=== PATIENT | male | born 1960 | race Caucasian/White ===

== ENCOUNTER 2023-08-19 14:28 | Inpatient (IN) | payer BC ==
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
[2023-08-19 16:40] LABS: Basophils % (A) 0 %; Eosinophils % (A) 0 %; HCT 38.5 % (39.0-53.0); HGB 13.5 gm/dL (13.0-17.5); Lymphocytes # (A) 0.8 k/uL (1.0-4.8); Lymphocytes % (A) 10 %; MCH 33.6 pg (25.0-35.0); Mean Platelet Volume 9.9; Monocytes # (A) 0.3 k/uL (0-1.0); Monocytes % (A) 3 %; Neutrophils # (A) 7.4 k/uL (1.3-7.7); Neutrophils % (A) 86 %; RBC 4.01 m/uL (4.30-5.90); RDW 14.5 % (11.5-15.5); WBC 8.5 k/uL (3.8-10.6)
[2023-08-19 16:42] LABS: ALT 43 U/L (4-49); AST 53 U/L (17-59); African American GFR (CKD) 62 (>60 ml/min/1.73 sqM); Albumin 3.4 g/dL (3.5-5.0); Alkaline Phosphatase 71 U/L (38-126); Anion Gap 7 mmol/L; Blood Urea Nitrogen 43 mg/dL (9-20); Calcium 9.1 mg/dL (8.4-10.2); Carbon Dioxide 22 mmol/L (22-30); Chloride 108 mmol/L (98-107); Glucose 195 mg/dL (74-99); Non-African American GFR(CKD) 54 (>60 ml/min/1.73 sqM); Potassium 4.4 mmol/L (3.5-5.1); Sodium 137 mmol/L (137-145); Total Bilirubin 1.1 mg/dL (0.2-1.3); Total Protein 6.8 g/dL (6.3-8.2)
[2023-08-19 16:46] LABS: INR 1.3 (<1.2); Partial Thromboplastin Time 25.5 sec (22.0-30.0); Prothrombin Time 13.5 sec (10.0-12.5)
[2023-08-19 17:04] LABS: Large Platelets Present
[2023-08-19 17:05] LABS: Platelet Count 83 k/uL (150-450); Polychromasia Present
[2023-08-19] MEDS ORDERED: NALOXONE 0.4 MG/ML 1 ML VIAL IV PRN (18:48)
[2023-08-19] MEDS ORDERED: ACETAMINOPHEN TAB 325 MG TAB PO PRN (18:48)
[2023-08-19] MEDS: DEXAMETHASONE SOD PHOSPHATE 4 MG/ML 1 ML VIAL IVP SCH (19:03)
[2023-08-19] MEDS: SODIUM CHLORIDE 0.9% 1,000 ML IV SCH (19:03)
[2023-08-19 21:40] LABS: Glucose,Whole Blood 200 mg/dL (70-110)
[2023-08-19] MEDS: hydrALAZINE HCL 50 MG TAB PO PRN (23:34)
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
[2023-08-20 08:55] LABS: Basophils # (A) 0.02 X 10*3/uL (0.00-0.10); Basophils % (A) 0.2 %; Eosinophils # (A) 0 X 10*3/uL (0.04-0.35); Eosinophils % (A) 0 %; HCT 36.8 % (39.6-50.0); HGB 12.3 g/dL (13.0-17.0); Immature Platelet Fraction 11.4 % (1.1-6.1); Lymphocytes # (A) 1.02 X 10*3/uL (0.90-5.00); Lymphocytes % (A) 11.9 %; MCH 31.9 pg (27.0-32.0); MCHC 33.4 g/dL (32.0-37.0); MCV 95.6 FL (80.0-97.0); Mean Platelet Volume 12.7 FL (9.5-12.2); Monocytes # (A) 0.35 X 10*3/uL (0.20-1.00); Monocytes % (A) 4.1 %; NRBC Per 100 WBC 0 X 10*3/uL (0.00-0.01); Neutrophils # (A) 7.08 X 10*3/uL (1.80-7.70); Platelet Count 67 X 10*3/uL (140-440); RBC 3.85 X 10*6/uL (4.40-5.60); RDW 14.5 % (11.5-14.5); WBC 8.54 X 10*3/uL (4.50-10.00)
[2023-08-20 09:06] LABS: ALT 37 U/L (10-49); AST 37 U/L (14-35); Albumin 3.3 g/dL (3.8-4.9); Albumin/Globulin Ratio 1.32 Ratio (1.60-3.17); Alkaline Phosphatase 62 U/L (41-126); BUN/Creat Ratio 28.33 Ratio (12.00-20.00); Blood Urea Nitrogen 42.5 mg/dL (9.0-27.0); Calcium 8.7 mg/dL (8.7-10.3); Chloride 107 mmol/L (96-109); Globulin 2.5 g/dL (1.6-3.3); Glucose 192 mg/dL (70-110); Potassium 4.2 mmol/L (3.5-5.5); Sodium 140 mmol/L (135-145); Total Bilirubin 0.7 mg/dL (0.3-1.2); Total Protein 5.8 g/dL (6.2-8.2)
[2023-08-20] MEDS: [UNRECOGNIZED DRUG - OTHER] SQ SCH (09:31)
[2023-08-20] MEDS: PANTOPRAZOLE 40 MG TABLET PO SCH (09:32)
[2023-08-20] MEDS: ENOXAPARIN 40 MG/0.4 ML SYRINGE SQ SCH (10:23)
[2023-08-20] MEDS: DAPAGLIFLOZIN PROPANEDIOL 5 MG TABLET PO SCH (10:27)
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
[2023-08-20 11:31] LABS: Glucose,Whole Blood 312 mg/dL (70-110)
[2023-08-20 13:32] LABS: Glucose,Whole Blood 355 mg/dL (70-110)
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
[2023-08-20 16:29] LABS: Glucose,Whole Blood 215 mg/dL (70-110)
[2023-08-20] MEDS: INSULIN ASPART (NovoLOG) 100 UNIT/ML VIAL SQ SCH (16:40)
[2023-08-20] MEDS: GABAPENTIN 300 MG CAP PO SCH (16:40)
[2023-08-20 21:09] LABS: Glucose,Whole Blood 331 mg/dL (70-110)
[2023-08-20] MEDS: lisinopriL 10 MG TAB PO SCH (21:15)
[2023-08-20] MEDS: hydroCHLOROthiazide 12.5 MG CAP PO SCH (21:15)
[2023-08-20] MEDS: INSULIN DETEMIR (LEVEMIR) 100 UNIT/ML SYR SQ SCH (21:15)
[2023-08-20] MEDS: ATORVASTATIN 40 MG TAB PO SCH (21:15)
[2023-08-21 06:25] LABS: Glucose,Whole Blood 197 mg/dL (70-110)
[2023-08-21 11:56] LABS: Glucose,Whole Blood 254 mg/dL (70-110)
[2023-08-21 16:19] LABS: Glucose,Whole Blood 261 mg/dL (70-110)
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
[2023-08-21 21:51] LABS: Glucose,Whole Blood 323 mg/dL (70-110)
[2023-08-22 06:36] LABS: Glucose,Whole Blood 178 mg/dL (70-110)
[2023-08-22 11:15] LABS: Glucose,Whole Blood 213 mg/dL (70-110)
[2023-08-22 11:25] LABS: BUN/Creat Ratio 30.07 Ratio (12.00-20.00); Blood Urea Nitrogen 45.1 mg/dL (9.0-27.0); Chloride 106 mmol/L (96-109); Glucose 202 mg/dL (70-110); Sodium 140 mmol/L (135-145)
[2023-08-22 11:26] LABS: Calcium 8.5 mg/dL (8.7-10.3)
--- NOTE | 2023-08-22 11:27 | P.PN ---
Subjective Progress Note Date: 08/22/23 Principal diagnosis: Recent fall Cervical pain Bilateral upper extremity radiculopathy Bilateral upper extremity weakness Patient seen and examined this morning. Upon entering room patient was ambulating throughout room. Patient states he is looking forward to surgical procedure scheduled for tomorrow 08/23/2023. Informed patient that he will be n.p.o. at midnight tonight. Patient verbalizes understanding. Patient denies any current questions regarding the procedure. He states that his symptoms are unchanged. No acute concerns at this time. Objective - Vital Signs Vital signs: Vital Signs Temp 97.8 F 08/22/23 02:00 Pulse 55 L 08/22/23 02:00 Resp 18 08/22/23 02:00 BP 136/63 08/22/23 02:00 Pulse Ox 98 08/22/23 02:00 FiO2 Intake & Output 08/21/23 08/22/23 08/22/23 18:59 06:59 18:59 Other: Voiding Method Toilet # Voids 1 3 # Bowel Movements 1 - Exam Physical Examination General: The patient is awake and alert, in no acute distress Skin: Skin is warm and dry with no obvious rashes or lesions. Eye: Pupils are equal, round and reactive to light, extra-ocular movements are intact; there is normal conjunctiva bilaterally. Neck: The neck is supple, there is no tenderness to palpation, range of motion is limited due to pain and stiffness. Cardiovascular: There is a regular rate and rhythm. No murmur, rub or gallop is appreciated. Respiratory: Respirations are non-labored, breath sounds are equal. Gastrointestinal: Soft, non-distended, non-tender abdomen. Back: There is no tenderness to palpation in the midline, paralumbar, parathoracic or buttocks region. There is no obvious deformity . Musculoskeletal: Muscle strength in all major muscle groups of bilateral upper extremities 4/5, bilateral lower extremities 5/5. Neurological: CN 2-12 intact. There are no obvious motor or sensory deficits. Movement and coordination equal and intact. Sensory exam to light touch intact C5-T1 and intact from L2-S1. Reflexes 2/4 in bilateral upper and lower extremities. Positive Bilateral Hoffmans, Negative babinski, and clonus signs. Psychiatric: Cooperative, appropriate mood & affect, normal judgment. - Labs CBC & Chem 7: 08/20/23 05:48 08/20/23 05:48 Labs: Abnormal Lab Results - Last 24 Hours (Table) 08/21/23 08/21/23 08/21/23 Range/Units 11:55 16:17 21:50 POC Glucose (mg/dL) 254 H 261 H 323 H (70-110) mg/dL 08/22/23 Range/Units 06:32 POC Glucose (mg/dL) 178 H (70-110) mg/dL Assessment and Plan Assessment: 1. C5-6 spondylosis with HNP and severe stenosis 2. C6-7 spondylosis with stenosis 3. Likely central cord syndrome from fall in [place], overall improvement, but limited. 4. Neck pain 5. L>R UE weakness Plan: Patient is scheduled for C5-C7 ACDF for 08/23/2023. Patient will be n.p.o. at midnight. 2. Appreciate medical management 3. Pain management -continue with oral and IV pain medications. 4. GI prophylaxis -senna 5. DVT prophylaxis -Mechanical 6. PT/OT - weightbearing as tolerated. 7. Appreciate consult
[2023-08-22 11:50] LABS: Basophils # (A) 0.03 X 10*3/uL (0.00-0.10); Basophils % (A) 0.3 %; Eosinophils # (A) 0 X 10*3/uL (0.04-0.35); Eosinophils % (A) 0 %; HCT 37.9 % (39.6-50.0); HGB 12.6 g/dL (13.0-17.0); Immature Platelet Fraction 11.4 % (1.1-6.1); Lymphocytes % (A) 7.6 %; MCH 31.7 pg (27.0-32.0); MCHC 33.2 g/dL (32.0-37.0); MCV 95.5 FL (80.0-97.0); Monocytes # (A) 0.92 X 10*3/uL (0.20-1.00); Monocytes % (A) 7.7 %; NRBC Per 100 WBC 0 X 10*3/uL (0.00-0.01); Neutrophils # (A) 9.82 X 10*3/uL (1.80-7.70); Neutrophils % (A) 82.5 %; Platelet Count 77 X 10*3/uL (140-440); RBC 3.97 X 10*6/uL (4.40-5.60); RDW 14.3 % (11.5-14.5)
[2023-08-22 16:17] LABS: Glucose,Whole Blood 252 mg/dL (70-110)
--- NOTE | 2023-08-22 19:34 | P.PN ---
Subjective Progress Note Date: 08/22/23 63-year-old male who presents emergency department complaining of neck pain. Patient was in [place] accident in [place] in mid July. He fell down some steps, and lost consciousness. Has been having neck pain since. Imaging done in early at that time unremarkable but was instructed to obtain an MRI when he returned to the [facility]. Injury occurred on July 30, 2023. MRI was completed earlier today and he was sent in by his PCP Dr. Fernandez for admission and evaluation by orthopedics. He continues to have similar to pain since the accident, which involves a shooting, burning numbness itchy sort of sensation that radiates from his neck down both arms to his second and third digits on both hands. Denies any weakness. Endorses mild neck discomfort but no significant pain. Denies any lower extremity weakness or sensory deficits. Has no other acute complaints at this time. Presents for further evaluation he has been on a Medrol Dosepak orally for the last few days. History of diabetes, hypertension, hyperlipidemia. MRI of the cervical spine taken on 08/19/2023 demonstrates a large broad-based central disc herniation C5-C6 that results in an anterior compression of the spinal cord and severe bilateral foraminal encroachment and canal stenosis. There is multilevel disc herniations or disc osteophyte complex resulting in multilevel significant foraminal encroachment. Patient has been evaluated by orthopedic surgery; recommend surgical intervention of C5-C6, C6-C7 anterior cervical decompression and fusion. -- Patient is agreeable to the plan with surgery for 08/23/2023; patient will be n.p.o. at midnight on 08/22/2023 08/22/2023 Patient is seen and evaluated sitting up in bedside chair; multiple family members at bedside; reports irritability and restlessness with steroids Vital signs are reviewed and remained stable Blood work reveals WBC of 11.9, hemoglobin of 12.6 and platelet count of 77, sodium 140, potassium 4.0, BUNs/creatinine of 45/1.5 blood glucose ranging between 178-213 Patient is scheduled for C5-C7 ACDF for 08/23/2023. Patient will be n.p.o. at midnight. Objective - Vital Signs Vital signs: Vital Signs Temp 97.8 F 08/22/23 07:59 Pulse 63 08/22/23 07:59 Resp 18 08/22/23 07:59 BP 165/95 08/22/23 07:59 Pulse Ox 97 08/22/23 07:59 FiO2 Intake & Output 08/21/23 08/22/23 08/22/23 18:59 06:59 18:59 Other: Voiding Method Toilet # Voids 1 3 # Bowel Movements 1 - Exam General: Appears in no acute distress. HEAD: Normal with no signs of head trauma. EYES: PERRLA, EOMI, conjunctiva normal, no discharge. ENT: Hearing grossly intact, normal oropharynx. RESPIRATORY: Clear breath sounds bilaterally. No wheezes, rales, or rhonchi. C/V: Regular rate and rhythm. S1 and S2 auscultated, no edema, peripheral pulses 2+ and intact throughout ABD: Abd is soft, nontender, nondistended EXT: Normal range of motion, no obvious deformity. No significant midline cervical, thoracic, lumbar spine tenderness to palpation. No step-offs or deformities appreciated. SKIN: No rashes or lesions observed on exposed skin. NEURO: Alert and oriented x 4. Paresthesias of the bilateral arms with radiation from the neck down both arms to the second and third digits of the hands. No other other focal deficits. - Labs CBC & Chem 7: 08/22/23 06:20 08/22/23 06:20 Labs: Abnormal Lab Results - Last 24 Hours (Table) 08/21/23 08/21/23 08/22/23 Range/Units 16:17 21:50 06:20 WBC 11.90 H (4.50-10.00) X 10*3/uL RBC 3.97 L (4.40-5.60) X 10*6/uL Hgb 12.6 L (13.0-17.0) g/dL Hct 37.9 L (39.6-50.0) % Plt Count 77 L (140-440) X 10*3/uL MPV 13.0 H (9.5-12.2) FL Immature Gran # 0.23 H (0.00-0.04) X 10*3/uL Neutrophils # 9.82 H (1.80-7.70) X 10*3/uL Eosinophils # 0 L (0.04-0.35) X 10*3/uL Immature Plt Fraction 11.4 H (1.1-6.1) % BUN (9.0-27.0) mg/dL Est GFR (CKD-EPI) (>=60) BUN/Creatinine Ratio (12.00-20.00) Ratio Glucose (70-110) mg/dL POC Glucose (mg/dL) 261 H 323 H (70-110) mg/dL Calcium (8.7-10.3) mg/dL 08/22/23 08/22/23 08/22/23 Range/Units 06:20 06:32 11:12 WBC (4.50-10.00) X 10*3/uL RBC (4.40-5.60) X 10*6/uL Hgb (13.0-17.0) g/dL Hct (39.6-50.0) % Plt Count (140-440) X 10*3/uL MPV (9.5-12.2) FL Immature Gran # (0.00-0.04) X 10*3/uL Neutrophils # (1.80-7.70) X 10*3/uL Eosinophils # (0.04-0.35) X 10*3/uL Immature Plt Fraction (1.1-6.1) % BUN 45.1 H (9.0-27.0) mg/dL Est GFR (CKD-EPI) 52 L (>=60) BUN/Creatinine Ratio 30.07 H (12.00-20.00) Ratio Glucose 202 H (70-110) mg/dL POC Glucose (mg/dL) 178 H 213 H (70-110) mg/dL Calcium 8.5 L (8.7-10.3) mg/dL Assessment and Plan Assessment: 1. Acute herniated and compression disc affecting the cervical spine 5/6 with anterior compression of the cord -- Patient has been evaluated by orthopedic surgery; recommend surgical intervention of C5-C6, C6-C7 anterior cervical decompression and fusion. Patient would like to proceed with surgical intervention. Patient has been scheduled for 08/23/23. Pateint will be NPO at [place] on 08/22/23. 2. Severe intractable cervical spine pain with radiculopathy secondary to acute compression and severe spinal stenosis: -- Patient reports adequate pain control with current regimen; will continue same 3. Type 2 diabetes: Currently on Farxiga and Levemir resume NovoLog with Accu- Chek sliding scales 4. Hypertension: Zestril 10 mg a day; hydralazine 25 to 50 mg every 6 hours for systolic blood pressure above 150. 5. Hyperlipidemia: Total 40 mg daily. 6. Acute kidney injury with chronic kidney disease stage II: Continue gentle hydration avoid any nephrotoxic agent watch symptoms carefully. -We will monitor strict AMANDA's, daily weights, renal function electrolytes DVT prophylaxis: Patient will be on Lovenox 40 mg subcutaneous daily. CODE STATUS: Full code.
[2023-08-22 21:54] LABS: Glucose,Whole Blood 172 mg/dL (70-110)
[2023-08-23 06:17] LABS: Glucose,Whole Blood 216 mg/dL (70-110)
[2023-08-23 09:13] LABS: BUN/Creat Ratio 27.67 Ratio (12.00-20.00); Blood Urea Nitrogen 41.5 mg/dL (9.0-27.0); Glucose 202 mg/dL (70-110)
[2023-08-23 09:14] LABS: Calcium 8.3 mg/dL (8.7-10.3); Carbon Dioxide 23.7 mmol/L (21.6-31.8); Chloride 106 mmol/L (96-109); Potassium 4.1 mmol/L (3.5-5.5); Sodium 139 mmol/L (135-145)
[2023-08-23 11:39] LABS: Glucose,Whole Blood 195 mg/dL (70-110)
[2023-08-23] MEDS: DEXTROSE 50% SYRINGE 50 ML IVP ONE (14:38)
[2023-08-23 15:12] LABS: Glucose,Whole Blood 129 mg/dL (70-110)
--- NOTE | 2023-08-23 16:03 | P.PN ---
Progress Note - Text Progress Note Date: 08/23/23 Spine Surgery Clinical and Risk Review MEGAN IVY is a 63 YO MALE presenting for evaluation of BUE PARESTHESIAS, WEAKNESS, DIFFICULTY WITH FINE MOTOR SKILLS, NECK PAIN. It was my pleasure to have seen and examined MEGAN IVY . In our visit today we have had a chance to go over subjective complaints, physical examination findings and treatments including the natural course history without intervention and various interventional options. The patients imaging demonstrates SEVERE STENOSIS WITH CORD COMPRESSION AND HNP AT C5-6 AND C6-7. NO FRACTURE. NO LESIONS. C0-1 AND C1-2 ARE STABLE. On physical exam, MEGAN IVY demonstrates BUE HYPERESTHESIA TO TOUCH, FINE MOTOR DISRUPTION, NECK PAIN, NUMBNESS IN C5-7 DISTRIBUTION B/L UE. I have explained to the patient that as their condition progresses it will cause further neurological deficits and eventual paralysis. Based on the patients imaging, physical exam, and the rapid progression and disabling nature of their symptoms, at this time I recommend surgery in the form or a: C5-7 ANTERIOR CERVICAL DISCECOMTY AND FUSION. I discussed the risk and benefits of this procedure at length with MEGAN IVY . The patient AND agreed to considered pursuing the procedure abovementioned. Prior to surgery, she should follow up with her PCP (Cardio, ID, IM etc) for clearance. Questions were invited and answered, and the patient wishes to proceed as outlined below. Currently, I am recommendin. C5-7 ANTERIOR CERVICAL DISCECOMTY AND FUSION 2. Follow up with PCP for surgical clearance 3. Review of surgical risks and benefits as well as an educational packet on the proposed surgical procedure. Risks: All surgical procedures come with inherent risks, including those related to positioning, anesthesia, intraoperative findings, and postoperative complications. It is important to understand that surgery does not come with any guarantee of a successful outcome as complications and adverse events are always possible. The patient was given a handout in office today discussing the surgical procedure and risks associated with the intervention, both of which were discussed with the patient. These risks include but are not limited to the following: * Experiencing same, different or even worse symptoms in back, neck, arms, or legs compared to before surgery. * Requiring further surgery or other forms of treatment presently or at some time in the future at same or other levels of the intended spine surgery. * On an extreme but fortunately relatively rare basis severe complication such as blindness, stroke, heart attack, temporary and/or permanent nerve injury, paralysis, coma, or may occur, sometimes without known explanation. * Surgical complications may include but are not limited to risk of infecti on, fluid accumulation in the surgical dissection site, including a seroma or hematoma, that requires additional surgery, wound drainage, bleeding, new numbness or weakness, vision changes/loss, spinal fluid leakage, non-healing and/or infected incision, headaches, difficulty or inability to swallow, hoarseness, hemopneumothorax, pneumothorax, impotence, retrograde ejaculation, vaginal dryness; injury to nerves, spinal cord, blood vessels, lymphatics or other vital organs (i.e., bowel injury, injury to the great vessels); heterotopic bone formation; complications related to the hardware such as screws, rods, cages including misplaced hardware, device failure, instrumentation at the wrong spine level, hardware fracture/breakage, or hardware loosening; vertebral failure of the spinal column above or below the newly placed hardware; retained surgical instrumentations or devices and the need for further surgery. * Medical risks of the planned spine surgery include but are not limited to generalized Infections to the whole body or local areas outside of the surgical site (sepsis), heart attack, bleeding, anaphylaxis, meningitis, seizure, epilepsy, hearing loss, burn perera, laceration of the head or other areas of the body, bruising, hypersensitivity of the skin, bladder over distension; allergic reaction; shoulder injury related to positioning; fat, blood and air clots to other areas of the body like heart, lungs, brain; failure of internal organs such as lungs, kidneys, liver and excessive bleeding. If blood transfusions are necessary, note that transfusions may cause intolerance reactions such as anaphylaxis or other complex reactions. * Despite best efforts, the results of spine surgery might not heal in terms of bone, soft tissues such as skin, fascia, ligaments, and joints. Additionally, in order to achieve best possible results, spine surgery may be carried out beyond the initially planned levels and involve decompression, fusion including insertion of hardware at levels other than the original intended area of surgical interest change some portions of the procedure in order to ensure the best possible outcomes. * With spine surgery and spinal fusion, there are different off label uses of instrumentation (devices, implants and hardware) as well as biological substances (bone morphogenic proteins, demineralized bone matrix) as well as using extra bone from allograft sources (i.e. cadaver bone) or autograft (iliac crest bone, ribs, or the spine itself). The patient has been given information about these practices and their inherent risks and benefits. The patient has had a chance to review all the listed information, has been given print outs detailing this information, and has had all his/her questions answered to their satisfaction. It was my pleasure to have seen and examined MEGAN IVY . In our visit today we have had a chance to go over my understanding of our patient's current condition, the natural course history without intervention and various interventional options. Questions were invited and answered, and the patient wishes to proceed as outlined above. I have seen and examined the patient for 25 minutes and we have spent more than 50% of the time in repeat and detailed counseling about the patient's condition, its natural course history with out and as much as can be predicted with surgery and re-review of various surgical treatment options. In conclusion, MEGAN IVY and AT BEDSIDE requested we proceed with the above suggested surgery and are willing to accept risks and limitations of the suggested surgery as nature of the disease process and our best attempts at treatment for the condition. Thank you again for allowing us to be part of your patient's care. Please don't hesitate to contact me if you have any further questions. Signed and authenticated by: Vipul Hnening [facility] [address] [place] [address], [address] [id number]
[2023-08-23 16:19] LABS: Glucose,Whole Blood 108 mg/dL (70-110)
[2023-08-23 16:34] LABS: Glucose,Whole Blood 109 mg/dL (70-110)
[2023-08-23] MEDS: LACTATED RINGERS 1,000 ML IV ONE ×4 (16:45→17:50)
[2023-08-23] MEDS ORDERED: HYDROmorphone (PF) 1 MG/ML ONE (16:55)
[2023-08-23] MEDS ORDERED: ePHEDrine 50 MG/ML 1 ML VIAL ONE (16:55)
[2023-08-23] MEDS ORDERED: LIDOCAINE 1% INJ 10MG/ML (20 ML MDV) ONE (16:55)
[2023-08-23] MEDS ORDERED: fentaNYL (PF) 50 MCG/ML 2 ML AMP ONE (16:55)
[2023-08-23] MEDS ORDERED: ROCURONIUM 10 MG/ML (5 ML VIAL) IV ONE (16:55)
[2023-08-23] MEDS ORDERED: TRANEXAMIC 1,000 MG/100ML-NACL PREMIX BAG ONE (16:55)
[2023-08-23] MEDS ORDERED: SUCCINYLCHOLINE CHLORIDE 200 MG/10 ML VIAL IV ONE (16:55)
[2023-08-23] MEDS ORDERED: MIDAZOLAM 2 MG/2 ML VIAL ONE (16:55)
[2023-08-23] MEDS ORDERED: PROPOFOL 10 MG/ML 20 ML VIAL IV ONE (16:55)
[2023-08-23] MEDS ORDERED: SUGAMMADEX SODIUM 200 MG/2 ML SDV IV ONE (16:55)
[2023-08-23] MEDS: THROMBIN (BOVINE) 5,000 UNIT VIAL TOPICAL ONE (16:59)
[2023-08-23] MEDS: ceFAZolin 1,000 MG VIAL IVPB ONE (17:20)
--- NOTE | 2023-08-23 19:07 | P.OP ---
Date of Procedure: 08/23/23 Preoperative Diagnosis: 1. C5-7 HNP WITH STENOSIS, SEVERE 2. CENTRAL CORD SYNDROME 3. BUE PARESTHESIAS 4. BUE WEAKNESS 5. NECK PAIN Postoperative Diagnosis: 1. C5-7 HNP WITH STENOSIS, SEVERE 2. CENTRAL CORD SYNDROME 3. BUE PARESTHESIAS 4. BUE WEAKNESS 5. NECK PAIN Procedure(s) Performed: 1. C5-6 ANTERIOR CERVICAL ARTHRODESIS 2. C6-7 ANTERIOR CERVICAL ARTHRODESIS 3. ANTERIOR INSTRUMENTATION C5-7 4. C5-6 AND C6-7 INSERTION OF BIOMECHANICAL DEVICE X2 CAGES USE OF IONM USE OF IO MICROSCOPE Implants: -TRACY CASCADIA INTERBODY 9MM INTERBODY X2 7 DEG -TRACY OZARK ANTERIOR PLATE 46 MM -16MM SCREWS -MAGNATOS -AUTOGRAFT Anesthesia: GETA Surgeon: Vipul Rosario Rehabilitation Program Coordinator #1: Isak Elmore (WAS PRESENT AND ASSISTED WITH ALL ASPECTS OF THE CASE FROM POSITION TO CLOUSRE) Estimated Blood Loss (ml): 50 IV fluids (ml): 1,400 Urine output (ml): 0 Pathology: none sent Condition: stable Disposition: PACU Indications for Procedure: MEGAN IVY is a 63 YO MALE presenting for evaluation of BUE PARESTHESIAS, WEAKNESS, DIFFICULTY WITH FINE MOTOR SKILLS, NECK PAIN. It was my pleasure to have seen and examined MEGAN IVY . In our visit today we have had a chance to go over subjective complaints, physical examination findings and treatments including the natural course history without intervention and various interventional options. The patients imaging demonstrates SEVERE STENOSIS WITH CORD COMPRESSION AND HNP AT C5-6 AND C6-7. NO FRACTURE. NO LESIONS. C0-1 AND C1-2 ARE STABLE. On physical exam, MEGAN IVY demonstrates BUE HYPERESTHESIA TO TOUCH, FINE MOTOR DISRUPTION, NECK PAIN, NUMBNESS IN C5-7 DISTRIBUTION B/L UE. I have explained to the patient that as their condition progresses it will cause further neurological deficits and eventual paralysis. Based on the patients imaging, physical exam, and the rapid progression and disabling nature of their symptoms, at this time I recommend surgery in the form or a: C5-7 ANTERIOR CERVICAL DISCECOMTY AND FUSION. I discussed the risk and benefits of this procedure at length with MEGAN IVY . The patient AND agreed to considered pursuing the procedure abovementioned. Prior to surgery, she should follow up with her PCP (Cardio, ID, IM etc) for clearance. Questions were invited and answered, and the patient wishes to proceed as outlined below. Currently, I am recommendin. C5-7 ANTERIOR CERVICAL DISCECOMTY AND FUSION Description of Procedure: C5-7 ACDF The patient was seen and examined in the preoperative area. All preoperative protocols were followed. Informed consent was obtained, risks and benefits of the procedure were discussed at length. Risks including bleeding infection damage to the surrounding tissue and risk of reoperation were discussed with the patient. Risk of anesthesia up to and including was discussed with the patient. These are outlined in the risk review. They were willing to accept these risks and all the risks of surgery. The patient was given a weight-based dose of antibiotics in the form of 2 g Ancef. The patient was seen and evaluated by the anesthesia team who deemed them fit for surgery. The site was marked, the patient was willing to proceed with the procedure. The patient was transferred to the operative suite by the Department of anesthesia. They were then drifted off to sleep by the department anesthesia and GETA was performed. The patient tolerated this well. Weinberg catheter was placed by nursing staff, a-traumatically. Once confirmation of lines and ventilation the patient was transferred to a Supine Aldo table very carefully. All bony prominences including wrists, elbows, axilla, chest, hips, and thighs, and feet were padded very well. Special attention was paid to the genitalia, and these were padded accordingly. SCDs were placed on bilateral lower extremities and were connected. Arms were well padded and placed at their side thumbs up. Once in position, again we confirmed good ventilation capabilities and that lines were running appropriately. The patients Cervical spine was then exposed. 1010s were placed outlining the incision site. Standard alcohol was used to clean the incision site and allowed to dry. C-arm was used to bio-neftali the patient and confirm level for incision which was marked with a skin marker. Operative briefing was performed with all teams and everyone in agreement to proceed. The patient was then prepped and draped in a normal sterile fashion. Timeout was then performed, and all parties agreed with the procedure to be performed. Transverse skin incision was then made on the right side of the patient's neck 3 cm and dissection taken down to the platysma which was split transversely. Sub platysma flap was made, and interval identified between SCM and medial structures. Omohyoid was visualized and protected. Blunt dissection taken down to the anterior cervical fascia which was identified. Blunt probe was then placed and lateral image taken which confirmed levels for operation. These levels were then marked with a bovi. Subperiosteal dissection of the longissimus muscles were then done over these levels identifying uncovertebral joints bilaterally. Retractor was then placed deep to these muscles and held in place with a bed arm. Starting at C6-7, Wenonah pins were placed into C6 and C7 and gentle distraction taken out over the levels. Pedro rongeur used to remove disc material. Operating microscope brought in for visualization. Complete discectomy performed at this level with curette, rongure and pituitary. High speed judah used to remove osteophytes anteriorly and posteriorly until PLL was identified. 6-0 up curette then used to identify the canal and resect the PLL. 2-0 and 3-0 Kerrison used then to remove PLL and disc herniation and performed b/l foraminotomies. Once good decompression was accomplished, meticulous hemostasis was performed. Sizers were then placed under lateral fluoroscopy until the desired height and lordosis. Cage was then selected, packed with autograft and allograft and placed under lateral imaging. Once in good position it was tested and stable. Motors run before and after cage placement were stable. The wound was irrigated, and autograft placed lateral to the cage anteriorly for fusion. Wenonah pin was then removed from C7 and placed into C5. Gentle distraction taken out over C5-6 now. Complete discectomy done at C5-6 as described including decompression, b/l foraminotomies and PLL resection. Burring of endplates was minimal, osteophytes removed as described. Spacers were then sized and placed under lateral imaging. Cage selected, packed with graft and placed under lateral images. Once in position, meticulous hemostasis performed, and motors remained stable before and after cage placement. AP image confirmed good placement of cages. Wound was irrigated. A separate, non-integrated plate was then selected and sized under lateral image. The plate was then placed with screws. Fixed screws drilled into C7 b/l and screws placed. Then into C6 and finally C5 with variable screws. All locking mechanisms were set, and all screws had good purchase. Final AP and lateral images taken confirmed good placement of hardware and good reduction and samaritan of height. The wound was then irrigated copiously with NSS. Surgicel placed deep in the wound. A deep drain placed out a separate incision and sewed into place. Layered closure then performed with 3-0 Vicryl in the platysma and subQ tissue. 4-0 Strata fix in the subcuticular tissue. The wound was then cleaned, and dried and skin glue placed. Once glue dried on Opifoam was placed. The patient was then transferred back to their hospital bed a-traumatically. The drain continued to hold suction. They were placed in a soft collar. They were then awakened by the department of anesthesia having tolerated the procedure well without complications.
--- NOTE | 2023-08-23 19:17 | XR ---
EXAMINATION TYPE: XR cervical spine limited, FL guidance operating room Intraoperative/procedural flu oroscopic services were provided. Total fluoroscopy time is 32.5 seconds with a total of 4 submitted images to PACS. Please see the operative/procedural note for further details. DAP: 1.6196 Gycm2
[2023-08-23] MEDS ORDERED: MAGNESIUM HYDROXIDE 2,400 MG/30 ML CUP PO PRN (19:18)
[2023-08-23] MEDS ORDERED: HYDROcodone/APAP 5-325MG 1 EACH TAB PO PRN (19:18)
[2023-08-23] MEDS ORDERED: HYDROmorphone 1 MG/ML 1 ML SYRINGE IVP PRN (19:18)
[2023-08-23] MEDS ORDERED: HYDROmorphone 0.5 MG/0.5 ML SYRINGE IVP PRN (19:18)
[2023-08-23] MEDS ORDERED: CYCLOBENZAPRINE 5 MG TAB PO PRN (19:18)
[2023-08-23 19:27] LABS: Glucose,Whole Blood 129 mg/dL (70-110)
[2023-08-23] MEDS: LABETALOL 5 MG/ML VIAL MDV IVP ONE (19:53)
[2023-08-23] MEDS: HYDROmorphone 0.5 MG/0.5 ML SYRINGE IVP ONE (19:55)
[2023-08-23] MEDS: hydrALAZINE HCL 20 MG/ML 1 ML VIAL IVP ONE (20:26)
[2023-08-23 21:44] LABS: Glucose,Whole Blood 160 mg/dL (70-110)
--- NOTE | 2023-08-23 22:38 | P.PN ---
Subjective Progress Note Date: 08/23/23 HISTORY OF PRESENT ILLNESS: 63-year-old obese one of my office patient well-known for the last 2 years with active medical history of type 2 diabetes, hypertension, hyperlipidemia, chronic lower back pain, chronic neuropathy, BPH with no obstruction, obstructive sleep apnea, chronic edema, chronic kidney disease who was in vacation in [place] last week when [place] when they were [place] he fell and people tripped on him and stampede him I declined more than 3 times he developed to have head and neck injury mated to the emergency department where we will scan his head at the time and did some upper extremity extremity became to the conclusion that he had no bleed or neuro injury and was told if you keep having symptoms when he comes home for an MRI. Patient was seen in our office continue to complain of severe cervical spine pain and discomfort with worsening numbness going all the way down to both upper extremity affecting the outer part of his thumb and second finger making both upper extremity weak. Patient was diagnosed with possible acute compression started on steroid with dexamethasone and MRI of the cervical spine was urgently ordered and done today came back with finding consistent with large broad-based central disc herniation of the C5-C6 results and anterior compression of the spinal cord and severe bilateral foraminal encroachment and canal stenosis. Also had multilevel of disc herniation or disc osteophyte complex resulting in multi level significant foraminal encroachment and multilevel canal stenosis. Also had sagittal disc bulging however protrusion in the upper thoracic spine incidentally noted. Patient was called with the result and instructed to come to the emergency department to be admitted he need to be started on steroid IV and to see orthopedic/neurosurgeon. Patient was seen and evaluated in the emergency department Sherry continue to have intractable pain and discomfort in his neck not been able to lay down flat with the current symptom was instructed to initiate cervical spine: Start steroid and pain management consult orthopedic programming specialist. August 20, 2023: Patient was kept in the hospital overnight continue steroid IV, waiting to see orthopedic service today to decide on further management specially with the current finding of his MRI with acute compression which most likely patient will require intervention. Patient is not able to lay down flat and almost all night up. Continue to watch patient's symptoms carefully still waiting for Ortho service. August 23, 2023: Patient scheduled for surgery today for central cord syndrome from a fall in [place] require C5-C7 ACDF, he was kept comfortable on the weekend and pain management along with steroid still have slight weakness in the left more than the right upper extremity and looking forward to his surgery. Has been n.p.o. after midnight. Reviewed his lab from earlier the only thing slightly with abnormal still on his blood sugar which been controlled also he has mild thrombocytopenia platelet count still at 77,000 should not have any contraindication for surgery with my consult hematology. REVIEW OF SYSTEMS: CONSTITUTIONAL: Obese no acute respiratory distress. Still having severe pain and discomfort in the neck area. Neck: Significant pain discomfort and tenderness and limitation when attempting to turn his neck from 1 side to another. EYES: No icterus sclerae, no conjunctivitis. EARS, NOSE, MOUTH, THROAT, and FACE: No sore throat, lymphadenopathy, carotid bruits or deformity. RESPIRATORY: No SOB cough or wheezes. CARDIOVASCULAR: No CP, Palpitation, PND, Orthopnea, or angina. GASTROINTESTINAL: No Abd pain, Nausea or vomiting, no Diarrhea or constipation, No GI Bleed, no distention or masses. GENITOURINARY: Negative for Hematuria or UTI, no kidney stones. INTEGUMENT/BREAST: Generalized arthralgia and myalgia. HEMATOLOGIC/LYMPHATIC: Negative for bleed or purpura. MUSCULOSKELTAL: Generalized muscle and joint pain. NEURLOGICAL: Positive for numbness and weakness of the upper extremity mostly in the right and left side. BEHAVIORAL/PSYCH: Negative. ENDOCRINE: Negative. PHYSICAL EXAMINATION: General Appearance: Alert, cooperative, no distress, severe pain and discomfort in neck and upper extremity. Neck HEENT: Cervical spine is very tender with no lymph node enlargement or thyroid enlargement and significant decrease motion specially turning 1 side to another with tenderness in the frontal on the back of the cervical spine. Lungs: Clear to auscultation without crackles or wheezes no rhonchi, no deformit y. Chest Wall: Chest wall normal expansion with deep inspiration no tenderness and no deformity was found on exam, no costochondral pain or discomfort. Heart: Regular rate and rhythm, S1, S2 normal, no murmur, rub or gallop. Back: Symmetric, no curvature, ROM normal, no CVA tenderness. Abdomen: Soft, non-tender, bowel sounds active all four quadrants, no masses, no organomegaly. Extremities: Extremities normal, atraumatic, no cyanosis or edema. Pulses: 2+ and symmetric. Skin: Skin color, texture, tugor normal, no rashes or lesions. Neurologic: Alert oriented x3 cranial nerves II through XII intact, positive weakness in the upper extremity bilaterally with significant numbness specially on the lateral aspect of both upper extremity worse on the right side than left side. ASSESSMENT AND PLAN: _Acute herniated and compression disc affecting the cervical spine 5/6 with anterior compression of the cord, Patient be admitted to the hospital start dexamethasone along with pain management, Dr. Rosario was consulted and will probably require urgent surgical intervention. Waiting for this decision today but will continue steroid and pain management. _Severe intractable cervical spine pain with radiculopathy from acute compression and severe spinal stenosis: Will keep patient on smaller dose of Dilaudid along with muscle relaxer. _Type 2 diabetes: Has been on Farxiga and Levemir resume NovoLog with Accu-Chek sliding scales coverage his blood sugar will be affected with the steroid at this point. Blood sugars quite bit high at this point specially with the steroid we might short acting insulin 5 units base plus sliding scales coverage. _Thrombocytopenia: With platelet count ranging around 77,000 with no sign of bleed, patient is scheduled for surgeryCBC will be done tomorrow morning. _Hypertension: Has been on Zestril 10 mg a day with a blood pressure being high and will initiate hydralazine 25 to 50 mg every 6 hours for systolic blood pressure above 150. _Hyperlipidemia: Has been on atorvastatin 40 mg daily. _Acute kidney injury with chronic kidney disease stage II: Creatinine remained at 1.5 EGFR 62, continue hydration watch symptoms carefully. _BPH with no sign of obstruction: Watch urine output carefully. _Chronic edema: Has been on HydroDIURIL in the past. _GI prophylaxis: Start patient on pantoprazole 40 mg daily. Prognosis: Fair. Discussion patient is going for surgery today hopefully will feel much better afterward. Objective - Vital Signs Vital signs: Vital Signs Temp 97.5 F L 08/23/23 02:00 Pulse 52 L 08/23/23 02:00 Resp 18 08/22/23 14:00 BP 134/70 08/23/23 02:00 Pulse Ox 98 08/23/23 02:00 FiO2 Intake & Output 08/22/23 08/22/23 08/23/23 06:59 18:59 06:59 Other: Voiding Method Toilet Toilet # Voids 3 2 1 # Bowel Movements 1 - Labs CBC & Chem 7: 08/22/23 06:20 08/23/23 04:30 Labs: Abnormal Lab Results - Last 24 Hours (Table) 08/22/23 08/22/23 08/22/23 Range/Units 06:20 06:20 06:32 WBC 11.90 H (4.50-10.00) X 10*3/uL RBC 3.97 L (4.40-5.60) X 10*6/uL Hgb 12.6 L (13.0-17.0) g/dL Hct 37.9 L (39.6-50.0) % Plt Count 77 L (140-440) X 10*3/uL MPV 13.0 H (9.5-12.2) FL Immature Gran # 0.23 H (0.00-0.04) X 10*3/uL Neutrophils # 9.82 H (1.80-7.70) X 10*3/uL Eosinophils # 0 L (0.04-0.35) X 10*3/uL Immature Plt Fraction 11.4 H (1.1-6.1) % BUN 45.1 H (9.0-27.0) mg/dL Est GFR (CKD-EPI) 52 L (>=60) BUN/Creatinine Ratio 30.07 H (12.00-20.00) Ratio Glucose 202 H (70-110) mg/dL POC Glucose (mg/dL) 178 H (70-110) mg/dL Calcium 8.5 L (8.7-10.3) mg/dL 08/22/23 08/22/23 08/22/23 Range/Units 11:12 16:15 21:52 WBC (4.50-10.00) X 10*3/uL RBC (4.40-5.60) X 10*6/uL Hgb (13.0-17.0) g/dL Hct (39.6-50.0) % Plt Count (140-440) X 10*3/uL MPV (9.5-12.2) FL Immature Gran # (0.00-0.04) X 10*3/uL Neutrophils # (1.80-7.70) X 10*3/uL Eosinophils # (0.04-0.35) X 10*3/uL Immature Plt Fraction (1.1-6.1) % BUN (9.0-27.0) mg/dL Est GFR (CKD-EPI) (>=60) BUN/Creatinine Ratio (12.00-20.00) Ratio Glucose (70-110) mg/dL POC Glucose (mg/dL) 213 H 252 H 172 H (70-110) mg/dL Calcium (8.7-10.3) mg/dL 08/23/23 Range/Units 06:00 WBC (4.50-10.00) X 10*3/uL RBC (4.40-5.60) X 10*6/uL Hgb (13.0-17.0) g/dL Hct (39.6-50.0) % Plt Count (140-440) X 10*3/uL MPV (9.5-12.2) FL Immature Gran # (0.00-0.04) X 10*3/uL Neutrophils # (1.80-7.70) X 10*3/uL Eosinophils # (0.04-0.35) X 10*3/uL Immature Plt Fraction (1.1-6.1) % BUN (9.0-27.0) mg/dL Est GFR (CKD-EPI) (>=60) BUN/Creatinine Ratio (12.00-20.00) Ratio Glucose (70-110) mg/dL POC Glucose (mg/dL) 216 H (70-110) mg/dL Calcium (8.7-10.3) mg/dL
[2023-08-24] MEDS: HYDROcodone/APAP 10-325MG 1 EACH TAB PO PRN (02:59)
[2023-08-24 06:41] LABS: Glucose,Whole Blood 198 mg/dL (70-110)
--- NOTE | 2023-08-24 08:18 | CT ---
EXAMINATION TYPE: CT cervical spine wo con CT DLP: 795.4 mGycm, Automated exposure control for dose reduction was used. DATE OF EXAM: 08/24/2023 7:36 AM COMPARISON: 08/23/2023. CLINICAL INDICATION:Male, 63 years old with history of s/p C5-C7 ACDF; PHH, s/p C5-C7 ACDF TECHNIQUE: Axial CT images from the skull base to the inferior aspect of T2 we obtained without intra venous contrast. Coronal and sagittal reformatted images were also reviewed. Contrast used: mL of , (if blank None) Oral contrast used: (if blank None) FINDINGS: Postsurgical changes with fixation hardware at C5-C6 and C7. Hardware appears intact. Discectomy at C 5-C6 and C6-C7. No evidence of acute fracture. There is multilevel degeneration changes with osteophy te formation, disc space narrowing, osteophyte formation, facet and uncovertebral joint arthropathy. Satisfactory alignment of the spinal canal. There is multilevel neural foraminal stenosis bilaterally at least moderate at multiple levels. IMPRESSION: Post surgical changes without evidence of immediate post surgical complication.
[2023-08-24 08:54] LABS: BUN/Creat Ratio 31.86 Ratio (12.00-20.00); Blood Urea Nitrogen 44.6 mg/dL (9.0-27.0); Calcium 8.4 mg/dL (8.7-10.3); Carbon Dioxide 19.7 mmol/L (21.6-31.8); Chloride 102 mmol/L (96-109); Glucose 227 mg/dL (70-110); Potassium 4.3 mmol/L (3.5-5.5); Sodium 138 mmol/L (135-145)
[2023-08-24] MEDS: SENNOSIDES-DOCUSATE SODIUM 1 EACH TAB PO SCH (09:02)
--- NOTE | 2023-08-24 09:19 | P.PN ---
Subjective Progress Note Date: 08/24/23 Principal diagnosis: 1. C5-6 spondylosis with HNP and severe stenosis 2. C6-7 spondylosis with stenosis 3. Likely central cord syndrome from fall in [place], overall improvement, but limited. 4. Neck pain 5. L>R UE weakness Patient seen and examined this morning. Patient is sitting up in chair at bedside. He reports that his pain was not managed throughout the night. Discussion of pain management was discussed with Day shift RN and rn intensive care unit. Encourage patient to utilize ice packs on bilateral shoulders to assist with pain management. Patient states that he has had improvement of his left upper extremity numbness since the procedure. Overall patient is very happy with his results. Surgical incision to the anterior cervical spine, dressing is clean dry and intact with soft cervical collar in place. Continue to encourage patient to be up in chair for all meals. Restrictions have been reiterated due to patient being eager to progress with his recovery. Objective - Vital Signs Vital signs: Vital Signs Temp 97.9 F 08/24/23 06:58 Pulse 68 08/24/23 06:58 Resp 17 08/24/23 06:58 BP 167/84 08/24/23 06:58 Pulse Ox 98 08/24/23 06:58 FiO2 Intake & Output 08/23/23 08/24/23 08/24/23 18:59 06:59 18:59 Intake Total 1500 400 Output Total 50 Balance 1500 350 Intake: IV 1500 400 Output: Estimated Blood Loss 50 Other: # Voids 1 - Exam Physical Examination General: The patient is awake and alert, in no acute distress Skin: Skin is warm and dry with no obvious rashes or lesions. Surgical incision to the anterior cervical spine, dressing is clean dry and intact. Eye: Pupils are equal, round and reactive to light, extra-ocular movements are intact; there is normal conjunctiva bilaterally. Neck: The neck is supple, there is mild tenderness around incision site. Limited range of motion due to surgical procedure and soft cervical collar intact. Cardiovascular: There is a regular rate and rhythm. No murmur, rub or gallop is appreciated. Respiratory: Respirations are non-labored, breath sounds are equal. Gastrointestinal: Soft, non-distended, non-tender abdomen. Back: There is no tenderness to palpation in the midline, paralumbar, parathoracic or buttocks region. There is no obvious deformity . Musculoskeletal: Muscle strength in all major muscle groups of right upper extremity 5/5, left upper extremity 4/5, bilateral lower extremities 5/5. Neurological: CN 2-12 intact. There are no obvious motor or sensory deficits. Movement and coordination equal and intact. Sensory exam to light touch intact C5-T1 and intact from L2-S1. Reflexes 2/4 in bilateral upper and lower extremities. Positive Bilateral Hoffmans, Negative babinski, and clonus signs. Psychiatric: Cooperative, appropriate mood & affect, normal judgment. - Labs CBC & Chem 7: 08/22/23 06:20 08/24/23 04:03 Labs: Abnormal Lab Results - Last 24 Hours (Table) 08/23/23 08/23/23 08/23/23 Range/Units 04:30 11:37 15:10 BUN 41.5 H (9.0-27.0) mg/dL Est GFR (CKD-EPI) 52 L (>=60) BUN/Creatinine Ratio 27.67 H (12.00-20.00) Ratio Glucose 202 H (70-110) mg/dL POC Glucose (mg/dL) 195 H 129 H (70-110) mg/dL Calcium 8.3 L (8.7-10.3) mg/dL 08/23/23 08/23/23 08/24/23 Range/Units 19:25 21:43 06:40 BUN (9.0-27.0) mg/dL Est GFR (CKD-EPI) (>=60) BUN/Creatinine Ratio (12.00-20.00) Ratio Glucose (70-110) mg/dL POC Glucose (mg/dL) 129 H 160 H 198 H (70-110) mg/dL Calcium (8.7-10.3) mg/dL Assessment and Plan Assessment: Postop day 1: C5-C7 ACDF 1. C5-6 spondylosis with HNP and severe stenosis 2. C6-7 spondylosis with stenosis 3. Likely central cord syndrome from fall in [place], overall improvement, but limited. 4. Neck pain 5. L>R UE weakness Plan: -Appreciate python consultant and team management. -Activity: Ambulate QID, OOB all meals, up and about, limit lifting bending twisting to less than 5 lbs. Use walker or cane if needed for stability. -Daily PT/OT, increase ambulation strength and balance. -Soft cervical collar at all times, may remove for showers -Pain control: Adequate at this time -Meds: reviewed -GI ppx: senna, Miralax -DVT PPX: OK to restart Heparin tonight -Hygiene: Shower today. Maintain dressing clean and dry. -Encourage IS 10x/hr -Dispo: Anticipate discharge home tomorrow with homecare *I reviewed and discussed this case with my attending Dr. Rosario, whom has reviewed this chart and films and is in agreement with assessment and plan of care as outlined above. I have personally seen and examined the patient, performed the documentation and the assessment and plan as written. Number of minutes spent on the visit: 20m.
[2023-08-24 09:38] LABS: Glucose,Whole Blood 213 mg/dL (70-110)
[2023-08-24 10:08] LABS: Basophils # (A) 0.05 X 10*3/uL (0.00-0.10); Basophils % (A) 0.4 %; Eosinophils # (A) 0 X 10*3/uL (0.04-0.35); Eosinophils % (A) 0 %; HCT 40.7 % (39.6-50.0); HGB 13.5 g/dL (13.0-17.0); Immature Platelet Fraction 11.8 % (1.1-6.1); Lymphocytes # (A) 0.71 X 10*3/uL (0.90-5.00); MCH 31.8 pg (27.0-32.0); MCHC 33.2 g/dL (32.0-37.0); Monocytes % (A) 10.2 %; NRBC Per 100 WBC 0 X 10*3/uL (0.00-0.01); Neutrophils # (A) 9.52 X 10*3/uL (1.80-7.70); Neutrophils % (A) 80.7 %; Platelet Count 61 X 10*3/uL (140-440); RBC 4.24 X 10*6/uL (4.40-5.60); RDW 14.6 % (11.5-14.5)
[2023-08-24 10:09] LABS: RBC Morphology Normal (Normal)
[2023-08-24 11:34] LABS: Glucose,Whole Blood 232 mg/dL (70-110)
[2023-08-24] MEDS: ONDANSETRON 4 MG/2 ML VIAL IVP PRN (12:06)
[2023-08-24 16:49] LABS: Glucose,Whole Blood 286 mg/dL (70-110)
[2023-08-24 20:36] LABS: Glucose,Whole Blood 140 mg/dL (70-110)
[2023-08-25 06:20] LABS: Glucose,Whole Blood 161 mg/dL (70-110)
--- NOTE | 2023-08-25 06:51 | P.PN ---
Subjective Progress Note Date: 08/24/23 HISTORY OF PRESENT ILLNESS: 63-year-old obese one of my office patient well-known for the last 2 years with active medical history of type 2 diabetes, hypertension, hyperlipidemia, chronic lower back pain, chronic neuropathy, BPH with no obstruction, obstructive sleep apnea, chronic edema, chronic kidney disease who was in vacation in [place] last week when he [place] when they were [place] he fell and people tripped on him and stampede him I declined more than 3 times he developed to have head and neck injury mated to the emergency department where we will scan his head at the time and did some upper extremity extremity became to the conclusion that he had no bleed or neuro injury and was told if you keep having symptoms when he comes home for an MRI. Patient was seen in our office continue to complain of severe cervical spine pain and discomfort with worsening numbness going all the way down to both upper extremity affecting the outer part of his thumb and second finger making both upper extremity weak. Patient was diagnosed with possible acute compression started on steroid with dexamethasone and MRI of the cervical spine was urgently ordered and done today came back with finding consistent with large broad-based central disc herniation of the C5-C6 results and anterior compression of the spinal cord and severe bilateral foraminal encroachment and canal stenosis. Also had multilevel of disc herniation or disc osteophyte complex resulting in multi level significant foraminal encroachment and multilevel canal stenosis. Also had sagittal disc bulging however protrusion in the upper thoracic spine incidentally noted. Patient was called with the result and instructed to come to the emergency department to be admitted he need to be started on steroid IV and to see orthopedic/neurosurgeon. Patient was seen and evaluated in the emergency department Sherry continue to have intractable pain and discomfort in his neck not been able to lay down flat with the current symptom was instructed to initiate cervical spine: Start steroid and pain management consult orthopedic operating systems specialist. August 20, 2023: Patient was kept in the hospital overnight continue steroid IV, waiting to see orthopedic service today to decide on further management specially with the current finding of his MRI with acute compression which most likely patient will require intervention. Patient is not able to lay down flat and almost all night up. Continue to watch patient's symptoms carefully still waiting for Ortho service. August 23, 2023: Patient scheduled for surgery today for central cord syndrome from a fall in [place] require C5-C7 ACDF, he was kept comfortable on the weekend and pain management along with steroid still have slight weakness in the left more than the right upper extremity and looking forward to his surgery. Has been n.p.o. after midnight. Reviewed his lab from earlier the only thing slightly with abnormal still on his blood sugar which been controlled also he has mild thrombocytopenia platelet count still at 77,000 should not have any contraindication for surgery with my consult hematology. 08/24/2023: Patient has done well with surgery, recovering nicely still having sl ight pain and discomfort still have mild numbness mostly in the left side with slight weakness but had significant improvement compared to before. Has been having slight bit of problem with his pain meds and medication management causing him to be having more side effects. Agreeable to drop his Dilaudid and use only hydrocodone on as-needed basis at this point. Patient is doing well with physical therapy walking safe with no complication hopefully the plant is doing well can be discharged home tomorrow. REVIEW OF SYSTEMS: CONSTITUTIONAL: Obese no acute respiratory distress. Still having severe pain and discomfort in the neck area. Neck: Significant pain discomfort and tenderness and limitation when attempting to turn his neck from 1 side to another. EYES: No icterus sclerae, no conjunctivitis. EARS, NOSE, MOUTH, THROAT, and FACE: No sore throat, lymphadenopathy, carotid bruits or deformity. RESPIRATORY: No SOB cough or wheezes. CARDIOVASCULAR: No CP, Palpitation, PND, Orthopnea, or angina. GASTROINTESTINAL: No Abd pain, Nausea or vomiting, no Diarrhea or constipation, No GI Bleed, no distention or masses. GENITOURINARY: Negative for Hematuria or UTI, no kidney stones. INTEGUMENT/BREAST: Generalized arthralgia and myalgia. HEMATOLOGIC/LYMPHATIC: Negative for bleed or purpura. MUSCULOSKELTAL: Generalized muscle and joint pain. NEURLOGICAL: Positive for numbness and weakness of the upper extremity mostly in the right and left side. BEHAVIORAL/PSYCH: Negative. ENDOCRINE: Negative. PHYSICAL EXAMINATION: General Appearance: Alert, cooperative, no distress, severe pain and discomfort in neck and upper extremity. Neck HEENT: Cervical spine is very tender with no lymph node enlargement or thyroid enlargement and significant decrease motion specially turning 1 side to another with tenderness in the frontal on the back of the cervical spine. Lungs: Clear to auscultation without crackles or wheezes no rhonchi, no deformity. Chest Wall: Chest wall normal expansion with deep inspiration no tenderness and no deformity was found on exam, no costochondral pain or discomfort. Heart: Regular rate and rhythm, S1, S2 normal, no murmur, rub or gallop. Back: Symmetric, no curvature, ROM normal, no CVA tenderness. Abdomen: Soft, non-tender, bowel sounds active all four quadrants, no masses, no organomegaly. Extremities: Extremities normal, atraumatic, no cyanosis or edema. Pulses: 2+ and symmetric. Skin: Skin color, texture, tugor normal, no rashes or lesions. Neurologic: Alert oriented x3 cranial nerves II through XII intact, positive weakness in the upper extremity bilaterally with significant numbness specially on the lateral aspect of both upper extremity worse on the right side than left side. ASSESSMENT AND PLAN: _Acute herniated and compression disc affecting the cervical spine 5/6 with anterior compression of the cord, patient ended up going for C5-C7 ACDF continue cervical collar has been doing well. _Severe intractable cervical spine pain with radiculopathy from acute compression and severe spinal stenosis: Postsurgery still on pain management at this point with Dilaudid and hydrocodone will DC Dilaudid and give hydrocodone only. _Type 2 diabetes: Has been on Farxiga and Levemir resume NovoLog with Accu-Chek sliding scales coverage his blood sugar will be affected with the steroid at this point. Blood sugars quite bit high at this point specially with the steroid we might short acting insulin 5 units base plus sliding scales coverage. _Thrombocytopenia: Postsurgery patient does have thrombocytopenia with platelet count down to 61,000 might consult hematology otherwise could be the effect of the medication at this point. _Hypertension: Has been on Zestril 10 mg a day with a blood pressure being high and will initiate hydralazine 25 to 50 mg every 6 hours for systolic blood pressure above 150. Blood pressure is responding well has been running below 130 but with reactive to pain is up to 160s sometimes. _Hyperlipidemia: Has been on atorvastatin 40 mg daily. _Acute kidney injury with chronic kidney disease stage II: Creatinine remained at 1.5 EGFR 62, continue hydration watch symptoms carefully. _BPH with no sign of obstruction: Watch urine output carefully. _Chronic edema: Has been on HydroDIURIL in the past. _GI prophylaxis: Start patient on pantoprazole 40 mg daily. Prognosis: Fair. Discussion postsurgery patient is doing very well continue to ambulate with help continue with cervical spine collar possible discharge home tomorrow. Objective - Vital Signs Vital signs: Vital Signs Temp 97.9 F 08/24/23 06:58 Pulse 68 08/24/23 06:58 Resp 17 08/24/23 06:58 BP 167/84 08/24/23 06:58 Pulse Ox 98 08/24/23 06:58 FiO2 Intake & Output 08/23/23 08/24/23 08/24/23 18:59 06:59 18:59 Intake Total 1500 400 Output Total 50 Balance 1500 350 Intake: IV 1500 400 Output: Estimated Blood Loss 50 Other: # Voids 1 - Labs CBC & Chem 7: 08/24/23 04:03 08/24/23 04:03 Labs: Abnormal Lab Results - Last 24 Hours (Table) 08/23/23 08/23/23 08/23/23 Range/Units 04:30 11:37 15:10 BUN 41.5 H (9.0-27.0) mg/dL Est GFR (CKD-EPI) 52 L (>=60) BUN/Creatinine Ratio 27.67 H (12.00-20.00) Ratio Glucose 202 H (70-110) mg/dL POC Glucose (mg/dL) 195 H 129 H (70-110) mg/dL Calcium 8.3 L (8.7-10.3) mg/dL 08/23/23 08/23/23 08/24/23 Range/Units 19:25 21:43 06:40 BUN (9.0-27.0) mg/dL Est GFR (CKD-EPI) (>=60) BUN/Creatinine Ratio (12.00-20.00) Ratio Glucose (70-110) mg/dL POC Glucose (mg/dL) 129 H 160 H 198 H (70-110) mg/dL Calcium (8.7-10.3) mg/dL
[2023-08-25 08:02] VITALS: RESP 16; TEMP 98.2
[2023-08-25 08:02] LABS: Glucose,Whole Blood 166 mg/dL (70-110)
--- NOTE | 2023-08-25 08:50 | P.PN ---
Subjective Progress Note Date: 08/25/23 Principal diagnosis: 1. C5-6 spondylosis with HNP and severe stenosis 2. C6-7 spondylosis with stenosis 3. Likely central cord syndrome from fall in [place], overall improvement, but limited. 4. Neck pain 5. L>R UE weakness Patient seen and examined this morning. Patient is sitting up in chair at bedside. He reports that his pain has been better managed on current regimen. Patient continues to report improvement of his left upper extremity numbness since the procedure. Surgical incision to the anterior cervical spine, dressing is clean dry and intact with soft cervical collar in place. Discharge instructions have been discussed. Patient is cleared from an Orthopedic standpoint for discharge. Objective - Vital Signs Vital signs: Vital Signs Temp 98.2 F 08/25/23 06:53 Pulse 83 08/25/23 08:01 Resp 16 08/25/23 08:00 BP 114/63 08/25/23 08:01 Pulse Ox 96 08/25/23 08:01 FiO2 Intake & Output 08/24/23 08/25/23 08/25/23 18:59 06:59 18:59 Other: Voiding Method Toilet # Voids 3 - Exam Physical Examination General: The patient is awake and alert, in no acute distress Skin: Skin is warm and dry with no obvious rashes or lesions. Surgical incision to the anterior cervical spine, dressing is clean dry and intact. Eye: Pupils are equal, round and reactive to light, extra-ocular movements are intact; there is normal conjunctiva bilaterally. Neck: The neck is supple, there is mild tenderness around incision site. Limited range of motion due to surgical procedure and soft cervical collar intact. Cardiovascular: There is a regular rate and rhythm. No murmur, rub or gallop is appreciated. Respiratory: Respirations are non-labored, breath sounds are equal. Gastrointestinal: Soft, non-distended, non-tender abdomen. Back: There is no tenderness to palpation in the midline, paralumbar, parathoracic or buttocks region. There is no obvious deformity . Musculoskeletal: Muscle strength in all major muscle groups of right upper extr emity 5/5, left upper extremity 4/5, bilateral lower extremities 5/5. Neurological: CN 2-12 intact. There are no obvious motor or sensory deficits. Movement and coordination equal and intact. Sensory exam to light touch intact C5-T1 and intact from L2-S1. Reflexes 2/4 in bilateral upper and lower extremities. Positive Bilateral Hoffmans, Negative babinski, and clonus signs. Psychiatric: Cooperative, appropriate mood & affect, normal judgment. - Labs CBC & Chem 7: 08/24/23 04:03 08/24/23 04:03 Labs: Abnormal Lab Results - Last 24 Hours (Table) 08/24/23 08/24/23 08/24/23 Range/Units 04:03 04:03 09:36 WBC 11.80 H (4.50-10.00) X 10*3/uL RBC 4.24 L (4.40-5.60) X 10*6/uL RDW 14.6 H (11.5-14.5) % Plt Count 61 L (140-440) X 10*3/uL MPV 13.0 H (9.5-12.2) FL Immature Gran # 0.32 H (0.00-0.04) X 10*3/uL Neutrophils # 9.52 H (1.80-7.70) X 10*3/uL Lymphocytes # 0.71 L (0.90-5.00) X 10*3/uL Monocytes # 1.20 H (0.20-1.00) X 10*3/uL Eosinophils # 0 L (0.04-0.35) X 10*3/uL Immature Plt Fraction 11.8 H (1.1-6.1) % Carbon Dioxide 19.7 L (21.6-31.8) mmol/L Anion Gap 16.30 H (4.00-12.00) mmol/L BUN 44.6 H (9.0-27.0) mg/dL Est GFR (CKD-EPI) 56 L (>=60) BUN/Creatinine Ratio 31.86 H (12.00-20.00) Ratio Glucose 227 H (70-110) mg/dL POC Glucose (mg/dL) 213 H (70-110) mg/dL Calcium 8.4 L (8.7-10.3) mg/dL 08/24/23 08/24/23 08/24/23 Range/Units 11:33 16:48 20:34 WBC (4.50-10.00) X 10*3/uL RBC (4.40-5.60) X 10*6/uL RDW (11.5-14.5) % Plt Count (140-440) X 10*3/uL MPV (9.5-12.2) FL Immature Gran # (0.00-0.04) X 10*3/uL Neutrophils # (1.80-7.70) X 10*3/uL Lymphocytes # (0.90-5.00) X 10*3/uL Monocytes # (0.20-1.00) X 10*3/uL Eosinophils # (0.04-0.35) X 10*3/uL Immature Plt Fraction (1.1-6.1) % Carbon Dioxide (21.6-31.8) mmol/L Anion Gap (4.00-12.00) mmol/L BUN (9.0-27.0) mg/dL Est GFR (CKD-EPI) (>=60) BUN/Creatinine Ratio (12.00-20.00) Ratio Glucose (70-110) mg/dL POC Glucose (mg/dL) 232 H 286 H 140 H (70-110) mg/dL Calcium (8.7-10.3) mg/dL 08/25/23 08/25/23 Range/Units 06:18 08:00 WBC (4.50-10.00) X 10*3/uL RBC (4.40-5.60) X 10*6/uL RDW (11.5-14.5) % Plt Count (140-440) X 10*3/uL MPV (9.5-12.2) FL Immature Gran # (0.00-0.04) X 10*3/uL Neutrophils # (1.80-7.70) X 10*3/uL Lymphocytes # (0.90-5.00) X 10*3/uL Monocytes # (0.20-1.00) X 10*3/uL Eosinophils # (0.04-0.35) X 10*3/uL Immature Plt Fraction (1.1-6.1) % Carbon Dioxide (21.6-31.8) mmol/L Anion Gap (4.00-12.00) mmol/L BUN (9.0-27.0) mg/dL Est GFR (CKD-EPI) (>=60) BUN/Creatinine Ratio (12.00-20.00) Ratio Glucose (70-110) mg/dL POC Glucose (mg/dL) 161 H 166 H (70-110) mg/dL Calcium (8.7-10.3) mg/dL Assessment and Plan Assessment: Postop day 2: C5-C7 ACDF 1. C5-6 spondylosis with HNP and severe stenosis 2. C6-7 spondylosis with stenosis 3. Likely central cord syndrome from fall in [place], overall improvement, but limited. 4. Neck pain 5. L>R UE weakness Plan: -Appreciate sap business objects consultant and team management. -Activity: Ambulate QID, OOB all meals, up and about, limit lifting bending twisting to less than 5 lbs. Use walker or cane if needed for stability. -Daily PT/OT, increase ambulation strength and balance. -Soft cervical collar at all times, may remove for showers -Pain control: Adequate at this time -Meds: reviewed -GI ppx: senna, Miralax -DVT PPX: TEDS -Hygiene: Shower today. Maintain dressing clean and dry. -Encourage IS 10x/hr -Dispo: Anticipate discharge home today with homecare, Patient is cleared from an Orthopedic standpoint for discharge when medically stable. *I reviewed and discussed this case with my attending Dr. Rosario, whom has reviewed this chart and films and is in agreement with assessment and plan of care as outlined above. I have personally seen and examined the patient, performed the documentation and the assessment and plan as written. Number of minutes spent on the visit: 20m.
[2023-08-25 08:57] VITALS: BP 114/63; PULSE 83
[2023-08-25 09:50] LABS: Basophils # (A) 0.1 k/uL (0-0.2); Basophils % (A) 0 %; Eosinophils % (A) 0 %; HCT 45.1 % (39.0-53.0); HGB 14.2 gm/dL (13.0-17.5); Lymphocytes % (A) 6 %; MCH 31.4 pg (25.0-35.0); MCHC 31.5 g/dL (31.0-37.0); MCV 99.9 fL (80.0-100.0); Mean Platelet Volume 10.3; Monocytes # (A) 1.8 k/uL (0-1.0); Monocytes % (A) 11 %; Neutrophils # (A) 12.7 k/uL (1.3-7.7); Neutrophils % (A) 80 %; RBC 4.51 m/uL (4.30-5.90); RDW 14.3 % (11.5-15.5); WBC 15.9 k/uL (3.8-10.6)
[2023-08-25 10:01] LABS: Platelet Count 79 k/uL (150-450)
[2023-08-25 10:12] LABS: ALT 52 U/L (4-49); AST 46 U/L (17-59); African American GFR (CKD) 54 (>60 ml/min/1.73 sqM); Alkaline Phosphatase 75 U/L (38-126); Anion Gap 7 mmol/L; Blood Urea Nitrogen 62 mg/dL (9-20); Calcium 8.4 mg/dL (8.4-10.2); Carbon Dioxide 24 mmol/L (22-30); Chloride 101 mmol/L (98-107); Glucose 311 mg/dL (74-99); Non-African American GFR(CKD) 47 (>60 ml/min/1.73 sqM); Potassium 4.6 mmol/L (3.5-5.1); Sodium 132 mmol/L (137-145); Total Bilirubin 1.8 mg/dL (0.2-1.3)
--- NOTE | 2023-08-25 18:10 | P.CONS ---
History of Present Illness - Reason for Consult Consult date: 08/25/23 thrombocytopenia Requesting physician: Naga Fernandez - Chief Complaint neck pain - History of Present Illness Mr. Hernandez is a 63 yo male pt referred to Dr. Hernandez in early 2012 because of persistent low platelets noted on routine lab work. He had been evaluated in 2009 for asymptomatic mild thrombocytopenia, laboratory workup was nondiagnostic. Bone marrow biopsy and aspirate August 2009 was negative. It was felt that the patient has chronic ITP. He has seen Dr. Hernandez prior to surgery to ensure adequate platelet counts for procedures. He has not required any transfusions or treatments to increase platelet counts. He is seen by Dr. Hernandez as needed. Baseline plt counts in the 80K range. Patient is currently admitted after a fall while he was traveling in [place]. He is postop. Denies any unusual bleeding or bruising. No documented complications. He is doing well and being discharged. Review of Systems Focused ROS is neg Past Medical History Past Medical History: Blood Disorder (ITP), Diabetes Mellitus, Hyperlipidemia, Hypertension History of Any Multi-Drug Resistant Organisms: None Reported Past Surgical History: Orthopedic Surgery Additional Past Surgical History / Comment(s): throat surgery, violeta anisa Past Psychological History: No Psychological Hx Reported Smoking Status: Never smoker Past Alcohol Use History: None Reported Past Drug Use History: None Reported Medications and Allergies Home Medications Medication Instructions Recorded Confirmed Type Atorvastatin [Lipitor] 40 mg PO HS 08/19/23 08/19/23 History Insulin Glargine,Hum.rec.anlog 60 unit SQ HS 08/19/23 08/19/23 History [Basaglar Kwikpen U-100] Insulin Lispro-Aabc [Lyumjev Tempo See Protocol SQ ACHS 08/19/23 08/19/23 History Pen U-100] hydroCHLOROthiazide 12.5 mg PO HS 08/19/23 08/19/23 History lisinopriL [Zestril] 10 mg PO HS 08/19/23 08/19/23 History metFORMIN HCL [metFORMIN HCL ER] 1,500 mg PO HS 08/19/23 08/19/23 History Cyclobenzaprine [Flexeril] 5 mg PO TID PRN #60 tab 08/25/23 Rx Dapagliflozin Propanediol [Farxiga] 10 mg PO DAILY #30 tab 08/25/23 Rx Gabapentin [Neurontin] 300 mg PO TID #90 cap 08/25/23 Rx HYDROcodone/APAP 10-325MG [[place] 1 each PO Q6H PRN #60 tab 08/25/23 Rx 10-325] Pantoprazole [Protonix] 40 mg PO AC-BRKFST #30 tab 08/25/23 Rx Sennosides-Docusate Sodium 2 each PO DAILY tab 08/25/23 Rx [Senokot-S] Allergies Allergy/AdvReac Type Severity Reaction Status Date / Time No Known Allergies Allergy Verified 08/19/23 18:06 Physical Exam Vitals: Vital Signs Temp Pulse Resp BP Pulse Ox 08/25/23 08:01 83 114/63 96 08/25/23 08:00 82 16 114/63 96 08/25/23 06:53 98.2 F 87 16 139/75 97 08/25/23 01:12 98.7 F 88 14 120/64 96 08/24/23 19:08 97.8 F 73 17 167/86 99 08/24/23 13:05 97.3 F L 84 17 172/85 99 08/24/23 09:14 68 17 Intake and Output 08/24/23 08/25/23 08/25/23 22:59 06:59 14:59 Other: # Voids 3 - Constitutional General appearance: average body habitus, cooperative, no acute distress - EENT Eyes: anicteric sclerae, EOMI ENT: hearing grossly normal - Respiratory resp even and unlabored - Cardiovascular skin warm and dry, well perfused leg Peripheral Edema: bilateral: None - Integumentary Integumentary: normal - Neurologic Neurologic: CNII-XII intact (grossly) - Musculoskeletal neck brace in place Musculoskeletal: strength equal bilaterally - Psychiatric Psychiatric: A&O x's 3, appropriate affect, intact judgment & insight Results CBC & Chem 7: 08/25/23 09:15 08/25/23 09:15 Labs: Abnormal Lab Results - Last 24 Hours (Table) 08/24/23 08/24/23 08/24/23 Range/Units 04:03 09:36 11:33 WBC 11.80 H (4.50-10.00) X 10*3/uL RBC 4.24 L (4.40-5.60) X 10*6/uL RDW 14.6 H (11.5-14.5) % Plt Count 61 L (140-440) X 10*3/uL MPV 13.0 H (9.5-12.2) FL Immature Gran # 0.32 H (0.00-0.04) X 10*3/uL Neutrophils # 9.52 H (1.80-7.70) X 10*3/uL Lymphocytes # 0.71 L (0.90-5.00) X 10*3/uL Monocytes # 1.20 H (0.20-1.00) X 10*3/uL Eosinophils # 0 L (0.04-0.35) X 10*3/uL Immature Plt Fraction 11.8 H (1.1-6.1) % POC Glucose (mg/dL) 213 H 232 H (70-110) mg/dL 08/24/23 08/24/23 08/25/23 Range/Units 16:48 20:34 06:18 WBC (4.50-10.00) X 10*3/uL RBC (4.40-5.60) X 10*6/uL RDW (11.5-14.5) % Plt Count (140-440) X 10*3/uL MPV (9.5-12.2) FL Immature Gran # (0.00-0.04) X 10*3/uL Neutrophils # (1.80-7.70) X 10*3/uL Lymphocytes # (0.90-5.00) X 10*3/uL Monocytes # (0.20-1.00) X 10*3/uL Eosinophils # (0.04-0.35) X 10*3/uL Immature Plt Fraction (1.1-6.1) % POC Glucose (mg/dL) 286 H 140 H 161 H (70-110) mg/dL 08/25/23 Range/Units 08:00 WBC (4.50-10.00) X 10*3/uL RBC (4.40-5.60) X 10*6/uL RDW (11.5-14.5) % Plt Count (140-440) X 10*3/uL MPV (9.5-12.2) FL Immature Gran # (0.00-0.04) X 10*3/uL Neutrophils # (1.80-7.70) X 10*3/uL Lymphocytes # (0.90-5.00) X 10*3/uL Monocytes # (0.20-1.00) X 10*3/uL Eosinophils # (0.04-0.35) X 10*3/uL Immature Plt Fraction (1.1-6.1) % POC Glucose (mg/dL) 166 H (70-110) mg/dL Assessment and Plan (1) Chronic ITP (idiopathic thrombocytopenia) Status: Chronic Priority: Low Code(s): D69.3 - IMMUNE THROMBOCYTOPENIC PURPURA SNOMED Code(s): 91196004 Plan: ITP -Workup done in 2009. Seen by Dr. Hernandez in 2012. -Pt has been worked up with labs, bone marrow biopsy and aspirate. No underlying cause for low platelets found -He has not required any treatment for the same as plt, though low, have been adequate-baseline around 80,000 -No contraindication for surgery as long as surgeon okay with platelets for procedure being done-surgery already complete. -No further workup from a hematology standpoint -Patient will follow-up with Dr. Hernandez as needed
--- NOTE | 2023-08-26 06:28 | P.PN ---
Subjective Progress Note Date: 08/25/23 HISTORY OF PRESENT ILLNESS: 63-year-old obese one of my office patient well-known for the last 2 years with active medical history of type 2 diabetes, hypertension, hyperlipidemia, chronic lower back pain, chronic neuropathy, BPH with no obstruction, obstructive sleep apnea, chronic edema, chronic kidney disease who was in vacation in [place] last week when he [place] an [place] ferry he fell when they were docking he fell and people tripped on him and stampede him I declined more than 3 times he developed to have head and neck injury mated to the emergency department where we will scan his head at the time and did some upper extremity extremity became to the conclusion that he had no bleed or neuro injury and was told if you keep having symptoms when he comes home for an MRI. Patient was seen in our office continue to complain of severe cervical spine pain and discomfort with worsening numbness going all the way down to both upper extremity affecting the outer part of his thumb and second finger making both upper extremity weak. Patient was diagnosed with possible acute compression started on steroid with dexamethasone and MRI of the cervical spine was urgently ordered and done today came back with finding consistent with large broad-based central disc herniation of the C5-C6 results and anterior compression of the spinal cord and severe bilateral foraminal encroachment and canal stenosis. Also had multilevel of disc herniation or disc osteophyte complex resulting in multi level significant foraminal encroachment and multilevel canal stenosis. Also had sagittal disc bulging however protrusion in the upper thoracic spine incidentally noted. Patient was called with the result and instructed to come to the emergency department to be admitted he need to be started on steroid IV and to see orthopedic/neurosurgeon. Patient was seen and evaluated in the emergency department Sherry continue to have intractable pain and discomfort in his neck not been able to lay down flat with the current symptom was instructed to initiate cervical spine: Start steroid and pain management consult orthopedic e marketing specialist. August 20, 2023: Patient was kept in the hospital overnight continue steroid IV, waiting to see orthopedic service today to decide on further management specially with the current finding of his MRI with acute compression which most likely patient will require intervention. Patient is not able to lay down flat and almost all night up. Continue to watch patient's symptoms carefully still waiting for Ortho service. August 23, 2023: Patient scheduled for surgery today for central cord syndrome from a fall in [place] require C5-C7 ACDF, he was kept comfortable on the weekend and pain management along with steroid still have slight weakness in the left more than the right upper extremity and looking forward to his surgery. Has been n.p.o. after midnight. Reviewed his lab from earlier the only thing slightly with abnormal still on his blood sugar which been controlled also he has mild thrombocytopenia platelet count still at 77,000 should not have any contraindication for surgery with my consult hematology. 08/24/2023: Patient has done well with surgery, recovering nicely still having sl ight pain and discomfort still have mild numbness mostly in the left side with slight weakness but had significant improvement compared to before. Has been having slight bit of problem with his pain meds and medication management causing him to be having more side effects. Agreeable to drop his Dilaudid and use only hydrocodone on as-needed basis at this point. Patient is doing well with physical therapy walking safe with no complication hopefully the plant is doing well can be discharged home tomorrow. 08/25/2023: Patient is doing very well moving freely his numbness in the right hand had improved significantly, continue to use his cervical spine collar but doing very well limited physical therapy at this point, blood sugar is much better and patient will be on SGLT2 product beside his current medication. He is off steroid at this point and if stable from surgical standpoint patient be able to be discharged home to be seen back in the office by Ortho next week. REVIEW OF SYSTEMS: CONSTITUTIONAL: Obese no acute respiratory distress. Still having severe pain and discomfort in the neck area. Neck: Significant pain discomfort and tenderness and limitation when attempting to turn his neck from 1 side to another. EYES: No icterus sclerae, no conjunctivitis. EARS, NOSE, MOUTH, THROAT, and FACE: No sore throat, lymphadenopathy, carotid bruits or deformity. RESPIRATORY: No SOB cough or wheezes. CARDIOVASCULAR: No CP, Palpitation, PND, Orthopnea, or angina. GASTROINTESTINAL: No Abd pain, Nausea or vomiting, no Diarrhea or constipation, No GI Bleed, no distention or masses. GENITOURINARY: Negative for Hematuria or UTI, no kidney stones. INTEGUMENT/BREAST: Generalized arthralgia and myalgia. HEMATOLOGIC/LYMPHATIC: Negative for bleed or purpura. MUSCULOSKELTAL: Generalized muscle and joint pain. NEURLOGICAL: Positive for numbness and weakness of the upper extremity mostly in the right and left side. BEHAVIORAL/PSYCH: Negative. ENDOCRINE: Negative. PHYSICAL EXAMINATION: General Appearance: Alert, cooperative, no distress, severe pain and discomfort in neck and upper extremity. Neck HEENT: Cervical spine is very tender with no lymph node enlargement or thyroid enlargement and significant decrease motion specially turning 1 side to another with tenderness in the frontal on the back of the cervical spine. Lungs: Clear to auscultation without crackles or wheezes no rhonchi, no deformity. Chest Wall: Chest wall normal expansion with deep inspiration no tenderness and no deformity was found on exam, no costochondral pain or discomfort. Heart: Regular rate and rhythm, S1, S2 normal, no murmur, rub or gallop. Back: Symmetric, no curvature, ROM normal, no CVA tenderness. Abdomen: Soft, non-tender, bowel sounds active all four quadrants, no masses, no organomegaly. Extremities: Extremities normal, atraumatic, no cyanosis or edema. Pulses: 2+ and symmetric. Skin: Skin color, texture, tugor normal, no rashes or lesions. Neurologic: Alert oriented x3 cranial nerves II through XII intact, positive weakness in the upper extremity bilaterally with significant numbness specially on the lateral aspect of both upper extremity worse on the right side than left side. ASSESSMENT AND PLAN: _Acute herniated and compression disc affecting the cervical spine 5/6 with anterior compression of the cord, patient ended up going for C5-C7 ACDF continue cervical collar has been doing well. _Severe intractable cervical spine pain with radiculopathy from acute com pression and severe spinal stenosis: Postsurgery still on pain management at this point with Dilaudid and hydrocodone will DC Dilaudid and give hydrocodone only. Doing much better. _Type 2 diabetes: His blood sugar becomes slightly bit higher since starting him on steroid and was kept off metformin, was started on Farxiga 5 mg a day will be titrated up to 10 and continue Levemir resume NovoLog with Accu-Chek sliding scales will continue current regimen and have patient back in the office today to continue glucose monitor for 24 hours. _Thrombocytopenia: Postsurgery patient does have thrombocytopenia with platelet count down to 61,000 might consult hematology otherwise could be the effect of the medication at this point. If could not see hematology still repeat CBC next week and plan to do hematology consultation as an outpatient. _Hypertension: Has been on Zestril 10 mg a day with a blood pressure being high and will initiate hydralazine 25 to 50 mg every 6 hours for systolic blood pressure above 150. Blood pressure is responding well has been running below 130 but with reactive to pain is up to 160s sometimes. _Hyperlipidemia: Has been on atorvastatin 40 mg daily. _Acute kidney injury with chronic kidney disease stage II: Creatinine remained at 1.5 EGFR 62, continue hydration watch symptoms carefully. Still watching his urine output repeat CMP again next week. _BPH with no sign of obstruction: Watch urine output carefully. _Chronic edema: Has been on HydroDIURIL in the past. Prognosis: Fair. Discussion has done very well postsurgery able to tolerate his medication, no neuro loss patient hopefully will be discharged home today. Objective - Vital Signs Vital signs: Vital Signs Temp 98.7 F 08/25/23 01:12 Pulse 88 08/25/23 01:12 Resp 14 08/25/23 01:12 BP 120/64 08/25/23 01:12 Pulse Ox 96 08/25/23 01:12 FiO2 Intake & Output 08/24/23 08/24/23 08/25/23 06:59 18:59 06:59 Intake Total 400 Output Total 50 Balance 350 Intake: IV 400 Output: Estimated Blood Loss 50 Other: Voiding Method Toilet # Voids 1 3 - Labs CBC & Chem 7: 08/25/23 09:15 08/25/23 09:15 Labs: Abnormal Lab Results - Last 24 Hours (Table) 08/24/23 08/24/23 08/24/23 Range/Units 04:03 04:03 09:36 WBC 11.80 H (4.50-10.00) X 10*3/uL RBC 4.24 L (4.40-5.60) X 10*6/uL RDW 14.6 H (11.5-14.5) % Plt Count 61 L (140-440) X 10*3/uL MPV 13.0 H (9.5-12.2) FL Immature Gran # 0.32 H (0.00-0.04) X 10*3/uL Neutrophils # 9.52 H (1.80-7.70) X 10*3/uL Lymphocytes # 0.71 L (0.90-5.00) X 10*3/uL Monocytes # 1.20 H (0.20-1.00) X 10*3/uL Eosinophils # 0 L (0.04-0.35) X 10*3/uL Immature Plt Fraction 11.8 H (1.1-6.1) % Carbon Dioxide 19.7 L (21.6-31.8) mmol/L Anion Gap 16.30 H (4.00-12.00) mmol/L BUN 44.6 H (9.0-27.0) mg/dL Est GFR (CKD-EPI) 56 L (>=60) BUN/Creatinine Ratio 31.86 H (12.00-20.00) Ratio Glucose 227 H (70-110) mg/dL POC Glucose (mg/dL) 213 H (70-110) mg/dL Calcium 8.4 L (8.7-10.3) mg/dL 08/24/23 08/24/23 08/24/23 Range/Units 11:33 16:48 20:34 WBC (4.50-10.00) X 10*3/uL RBC (4.40-5.60) X 10*6/uL RDW (11.5-14.5) % Plt Count (140-440) X 10*3/uL MPV (9.5-12.2) FL Immature Gran # (0.00-0.04) X 10*3/uL Neutrophils # (1.80-7.70) X 10*3/uL Lymphocytes # (0.90-5.00) X 10*3/uL Monocytes # (0.20-1.00) X 10*3/uL Eosinophils # (0.04-0.35) X 10*3/uL Immature Plt Fraction (1.1-6.1) % Carbon Dioxide (21.6-31.8) mmol/L Anion Gap (4.00-12.00) mmol/L BUN (9.0-27.0) mg/dL Est GFR (CKD-EPI) (>=60) BUN/Creatinine Ratio (12.00-20.00) Ratio Glucose (70-110) mg/dL POC Glucose (mg/dL) 232 H 286 H 140 H (70-110) mg/dL Calcium (8.7-10.3) mg/dL 08/25/23 Range/Units 06:18 WBC (4.50-10.00) X 10*3/uL RBC (4.40-5.60) X 10*6/uL RDW (11.5-14.5) % Plt Count (140-440) X 10*3/uL MPV (9.5-12.2) FL Immature Gran # (0.00-0.04) X 10*3/uL Neutrophils # (1.80-7.70) X 10*3/uL Lymphocytes # (0.90-5.00) X 10*3/uL Monocytes # (0.20-1.00) X 10*3/uL Eosinophils # (0.04-0.35) X 10*3/uL Immature Plt Fraction (1.1-6.1) % Carbon Dioxide (21.6-31.8) mmol/L Anion Gap (4.00-12.00) mmol/L BUN (9.0-27.0) mg/dL Est GFR (CKD-EPI) (>=60) BUN/Creatinine Ratio (12.00-20.00) Ratio Glucose (70-110) mg/dL POC Glucose (mg/dL) 161 H (70-110) mg/dL Calcium (8.7-10.3) mg/dL
--- NOTE | 2023-08-26 06:30 | P.DS ---
Providers Date of admission: 08/19/23 18:50 Attending physician: Naga Fernandez Consults: 08/19/23 18:48 Consult Physician Routine Consulting Provider: Vipul Rosario Consult Reason/Comments: cervical spine disc herniation Do you want consulting provider notified?: Yes 08/25/23 06:52 Consult Physician Routine Consulting Provider: Santi Navarro Consult Reason/Comments: Thrombocytopenia Do you want consulting provider notified?: Yes Primary care physician: [facility] [place] Course: HISTORY OF PRESENT ILLNESS: 63-year-old obese one of my office patient well-known for the last 2 years with active medical history of type 2 diabetes, hypertension, hyperlipidemia, chronic lower back pain, chronic neuropathy, BPH with no obstruction, obstructive sleep apnea, chronic edema, chronic kidney disease who was in vacation in [place] last week when he [place] fell when they were docking he fell and people tripped on him and stampede him I declined more than 3 times he developed to have head and neck injury mated to the emergency department where we will scan his head at the time and did some upper extremity extremity became to the conclusion that he had no bleed or neuro injury and was told if you keep having symptoms when he comes home for an MRI. Patient was seen in our office continue to complain of severe cervical spine pain and discomfort with worsening numbness going all the way down to both upper extremity affecting the outer part of his thumb and second finger making both upper extremity weak. Patient was diagnosed with possible acute compression started on steroid with dexamethasone and MRI of the cervical spine was urgently ordered and done today came back with finding consistent with large broad-based central disc herniation of the C5-C6 results and anterior compression of the spinal cord and severe bilateral foraminal encroachment and canal stenosis. Also had multilevel of disc herniation or disc osteophyte complex resulting in m ulti level significant foraminal encroachment and multilevel canal stenosis. Also had sagittal disc bulging however protrusion in the upper thoracic spine incidentally noted. Patient was called with the result and instructed to come to the emergency department to be admitted he need to be started on steroid IV and to see orthopedic/neurosurgeon. Patient was seen and evaluated in the emergency de anaya Powell continue to have intractable pain and discomfort in his neck not been able to lay down flat with the current symptom was instructed to initiate cervical spine: Start steroid and pain management consult orthopedic hospital cleaning specialist. August 20, 2023: Patient was kept in the hospital overnight continue steroid IV, waiting to see orthopedic service today to decide on further management specially with the current finding of his MRI with acute compression which most likely patient will require intervention. Patient is not able to lay down flat and almost all night up. Continue to watch patient's symptoms carefully still waiting for Ortho service. August 23, 2023: Patient scheduled for surgery today for central cord syndrome from a fall in [place] require C5-C7 ACDF, he was kept comfortable on the weekend and pain management along with steroid still have slight weakness in the left more than the right upper extremity and looking forward to his surgery. Has been n.p.o. after midnight. Reviewed his lab from earlier the only thing slightly with abnormal still on his blood sugar which been controlled also he has mild thrombocytopenia platelet count still at 77,000 should not have any contraindication for surgery with my consult hematology. 08/24/2023: Patient has done well with surgery, recovering nicely still having slight pain and discomfort still have mild numbness mostly in the left side with slight weakness but had significant improvement compared to before. Has been having slight bit of problem with his pain meds and medication management causing him to be having more side effects. Agreeable to drop his Dilaudid and use only hydrocodone on as-needed basis at this point. Patient is doing well with physical therapy walking safe with no complication hopefully the plant is doing well can be discharged home tomorrow. 08/25/2023: Patient is doing very well moving freely his numbness in the right hand had improved significantly, continue to use his cervical spine collar but doing very well limited physical therapy at this point, blood sugar is much better and patient will be on SGLT2 product beside his current medication. He is off steroid at this point and if stable from surgical standpoint patient be able to be discharged home to be seen back in the office by Ortho next week. REVIEW OF SYSTEMS: CONSTITUTIONAL: Obese no acute respiratory distress. Still having severe pain and discomfort in the neck area. Neck: Significant pain discomfort and tenderness and limitation when attempting to turn his neck from 1 side to another. EYES: No icterus sclerae, no conjunctivitis. EARS, NOSE, MOUTH, THROAT, and FACE: No sore throat, lymphadenopathy, carotid bruits or deformity. RESPIRATORY: No SOB cough or wheezes. CARDIOVASCULAR: No CP, Palpitation, PND, Orthopnea, or angina. GASTROINTESTINAL: No Abd pain, Nausea or vomiting, no Diarrhea or constipation, No GI Bleed, no distention or masses. GENITOURINARY: Negative for Hematuria or UTI, no kidney stones. INTEGUMENT/BREAST: Generalized arthralgia and myalgia. HEMATOLOGIC/LYMPHATIC: Negative for bleed or purpura. MUSCULOSKELTAL: Generalized muscle and joint pain. NEURLOGICAL: Positive for numbness and weakness of the upper extremity mostly in the right and left side. BEHAVIORAL/PSYCH: Negative. ENDOCRINE: Negative. PHYSICAL EXAMINATION: General Appearance: Alert, cooperative, no distress, severe pain and discomfort in neck and upper extremity. Neck HEENT: Cervical spine is very tender with no lymph node enlargement or thyroid enlargement and significant decrease motion specially turning 1 side to another with tenderness in the frontal on the back of the cervical spine. Lungs: Clear to auscultation without crackles or wheezes no rhonchi, no deformity. Chest Wall: Chest wall normal expansion with deep inspiration no tenderness and no deformity was found on exam, no costochondral pain or discomfort. Heart: Regular rate and rhythm, S1, S2 normal, no murmur, rub or gallop. Back: Symmetric, no curvature, ROM normal, no CVA tenderness. Abdomen: Soft, non-tender, bowel sounds active all four quadrants, no masses, no organomegaly. Extremities: Extremities normal, atraumatic, no cyanosis or edema. Pulses: 2+ and symmetric. Skin: Skin color, texture, tugor normal, no rashes or lesions. Neurologic: Alert oriented x3 cranial nerves II through XII intact, positive weakness in the upper extremity bilaterally with significant numbness specially on the lateral aspect of both upper extremity worse on the right side than left side. ASSESSMENT AND PLAN: _Acute herniated and compression disc affecting the cervical spine 5/6 with anterior compression of the cord, patient ended up going for C5-C7 ACDF continue cervical collar has been doing well. _Severe intractable cervical spine pain with radiculopathy from acute compression and severe spinal stenosis: Postsurgery still on pain management at this point with Dilaudid and hydrocodone will DC Dilaudid and give hydrocodone only. Doing much better. _Type 2 diabetes: His blood sugar becomes slightly bit higher since starting him on steroid and was kept off metformin, was started on Farxiga 5 mg a day will be titrated up to 10 and continue Levemir resume NovoLog with Accu-Chek sliding scales will continue current regimen and have patient back in the office today to continue glucose monitor for 24 hours. _Thrombocytopenia: Postsurgery patient does have thrombocytopenia with platelet count down to 61,000 might consult hematology otherwise could be the effect of the medication at this point. If could not see hematology still repeat CBC next week and plan to do hematology consultation as an outpatient. _Hypertension: Has been on Zestril 10 mg a day with a blood pressure being high and will initiate hydralazine 25 to 50 mg every 6 hours for systolic blood pressure above 150. Blood pressure is responding well has been running below 130 but with reactive to pain is up to 160s sometimes. _Hyperlipidemia: Has been on atorvastatin 40 mg daily. _Acute kidney injury with chronic kidney disease stage II: Creatinine remained at 1.5 EGFR 62, continue hydration watch symptoms carefully. Still watching his urine output repeat CMP again next week. _BPH with no sign of obstruction: Watch urine output carefully. _Chronic edema: Has been on HydroDIURIL in the past. Prognosis: Fair. Discussion has done very well postsurgery able to tolerate his medication, no neuro loss patient hopefully will be discharged home today. Hospital course: Patient was admitted to the hospital on August 19, 2023 because of finding with an MRI done for suspicion of major bulging or herniated disc from both accident when he was not trip to [place] the week before and this finding came back consistent with central disc herniation at C5-C6 result with anterior co mpression of the spinal cord and severe bilateral spinal stenosis. He was brought to the emergency department initially and admitted to the hospital to see orthopedic which plan milligram as doing C5-C6 ACDF as soon as possible. Patient ended up having surgery and done well he had low degree of thrombocytopenia did not prevent him from surgery. Continue having slight numbness of the left hand after surgery which last for 48 hours. Physical activity was limited at the time but titrated gradually patient seems to be able to ambulate on his own without help stability is much better. Found to have mild thrombocytopenia patient had seen hematology before leaving the hospital and apparently this is an older finding had seen hematology for it before and ended up having bone marrow biopsy no management required to be done for it and is all set and seen as an outpatient. Blood sugar was high specially being on steroid before surgery was kept off metformin, starting on Farxiga and continue Levemir along with NovoLog has done well will continue Farxiga patient to be seen in the office this week for possible continue glucose monitor for better management and adjustment of his insulin and he can resume his metformin as well. Patient is very stable met with him and his before discharge explained medication medication were sent to the pharmacy electronically patient be seen in the office early next week. Time spent on discharging patient was over 35 minutes. Patient Condition at Discharge: Stable Plan - Discharge Summary Discharge Rx Participant: No New Discharge Prescriptions: New Gabapentin [Neurontin] 300 mg PO TID #90 cap HYDROcodone/APAP 10-325MG [Dawn 10-325] 1 each PO Q6H PRN #60 tab PRN Reason: Pain Scale 7 - 10 Sennosides-Docusate Sodium [Senokot-S] 2 each PO DAILY tab Dapagliflozin Propanediol [Farxiga] 10 mg PO DAILY #30 tab Cyclobenzaprine [Flexeril] 5 mg PO TID PRN #60 tab PRN Reason: Muscle Spasm Pantoprazole [Protonix] 40 mg PO AC-BRKFST #30 tab Continue metFORMIN HCL [metFORMIN HCL ER] 1,500 mg PO HS lisinopriL [Zestril] 10 mg PO HS hydroCHLOROthiazide 12.5 mg PO HS Insulin Glargine,Hum.rec.anlog [Basaglar Kwikpen U-100] 60 unit SQ HS Insulin Lispro-Aabc [Lyumjev Tempo Pen U-100] See Protocol SQ ACHS Atorvastatin [Lipitor] 40 mg PO HS Discontinued dexAMETHasone [Decadron] 4 mg PO HS Discharge Medication List Atorvastatin [Lipitor] 40 mg PO HS 08/19/23 [History] Insulin Glargine,Hum.rec.anlog [Basaglar Kwikpen U-100] 60 unit SQ HS 08/19/23 [History] Insulin Lispro-Aabc [Lyumjev Tempo Pen U-100] See Protocol SQ ACHS 08/19/23 [History] hydroCHLOROthiazide 12.5 mg PO HS 08/19/23 [History] lisinopriL [Zestril] 10 mg PO HS 08/19/23 [History] metFORMIN HCL [metFORMIN HCL ER] 1,500 mg PO HS 08/19/23 [History] Cyclobenzaprine [Flexeril] 5 mg PO TID PRN #60 tab 08/25/23 [Rx] Dapagliflozin Propanediol [Farxiga] 10 mg PO DAILY #30 tab 08/25/23 [Rx] Gabapentin [Neurontin] 300 mg PO TID #90 cap 08/25/23 [Rx] HYDROcodone/APAP 10-325MG [Dawn 10-325] 1 each PO Q6H PRN #60 tab 08/25/23 [Rx] Pantoprazole [Protonix] 40 mg PO AC-BRKFST #30 tab 08/25/23 [Rx] Sennosides-Docusate Sodium [Senokot-S] 2 each PO DAILY tab 08/25/23 [Rx] Follow up Appointment(s)/Referral(s): Naga Fernandez MD [Primary Care Provider] - 08/30/23 2:15 pm (With Zayra) Vipul Rosario DO [Doctor of Osteopathic Medicine] - 09/08/23 1:30 pm Activity/Diet/Wound Care/Special Instructions: Spine Discharge and Recovery Instructions Date of Surgery: 08/23/2023 Diagnosis: cervical spine disc herniation Procedure: C5-C7 ACDF Medications: See medication list All medication refills should be obtained through your primary care doctor or your clinic spine surgeon. Please discuss prescription refills at your follow up appointment. Do not call the hospital for medication refills. Activity: Encourage ambulation with assist of walker, Up and about 6-8x daily PT/OT daily work on balance, strength and mobility Up in chair with all meals Shower daily Brace: Use brace when up and about, do not wear in bed or shower Dressing: Leave your dressing in place for a total of 3 days post operatively. Then you may remove your dressing and leave open to air. Keep the area clean and if not able to keep area clean, then cover with sterile gauze and tape. Showering: You may shower 3 days after your procedure allowing soap and water to run over incision. Do not scrub. Do not soak. Blot dry. Follow up: Please confirm a follow up appointment with your surgeon 2 weeks post operatively. Please make an appointment to follow up with your PCP in 1-2 weeks after surgery for evaluation `3 phase, 3-week plan POST OP WEEKS 1-3 1. Lifting/carrying/pushing/pulling limited to less than 5 pounds. 2. Do not sit for longer than 15 minutes at one time. Get up and walk around. Prolonged sitting is NOT advised. If you lay down, see if you can to lerate laying down on you front (belly side) 3. Walk for periods of 15 minutes = 1 mile but no longer; do it multiple times times each day. 4. Ice your low back after activity. POST OP WEEKS 3-6 1. Lifting limited to less than 20 pounds. 2. Do not sit for longer than 30 minutes at a time. Frequently change positions. Use a sit-to stand workstation or take frequent breaks from sitting if you have returned to work. 3. Walk for 30 minutes each day. If possible, do these three or more times a day POST OP WEEKS 6+ At your 6-week appointment we will give you a physical therapy referral to focus on a core stabilization and strengthening program. You should also work on leg & buttock strengthening, hamstring & quadriceps stretching, and continue a low impact aerobic activity program such as swimming, walking, or riding a stationary bicycle. During the initial 6 weeks after your surgery, you are at the highest risk of re -injuring your spine. You should generally avoid BLTs (bending, lifting and twisting combination motions) and follow the above guidelines to reduce the chance of reinjury. You can anticipate post op appointments in our office at approximately 3 weeks and 6 weeks after your surgery. INCISION CARE: If your incision is not draining you do NOT need to cover it with a dressing. Keep your incision clean, dry and intact. In most cases, we apply skin glue, kimberley or sutures to the incision at the time of surgery. This will be like a crust or have the appearance of a scab and will fall off in time on its own. The stitches or kimberley need to be removed at 3 weeks post op appointment. You may begin to shower 3 days after surgery (this allows the glue to burciaga well). However, please avoid scrubbing the incision site or peeling off any of the skin glue. This will ensure optimal healing of your incision. Also, during this time avoid soaking the incision area in water - this includes swimming pools, hot tubs or baths. No ointments, lotions or oils on the incision until your surgeon allows. Leave kimberley, sutures or glue in place. Neurological dysfunction that comes on suddenly can also be a sign of a stroke. Below some common symptoms of a stroke are listed: B - balance difficulty such as sudden onset walking or leaning to one side - NEW E - eye problem such as sudden double vision or trouble seeing on one side - NEW F - Facial weakness or numbness on one side - NEW A - Arm or leg weakness or numbness on one side - NEW S - Slurred speech or difficulty with word finding - NEW T - Time is BRAIN! Call 911 as soon as you recognize these symptoms Diet: Consume a regular diet rich in vegetables and lean protein such as chicken or fish. You should consume in a ratio of approximately 20% fats|40% carbohydrates|40%protein. Vegetables, sweet potatoes, brown rice or quinoa are examples of good carbohydrates. Chips, white bread, cookies and sweets/sugar are examples of bad carbohydrates. Limit your bad carbs, go wild with good carbs. "Life's Simple 7" Guidelines as per [place] [employer] These will help you reclaim your life after surgery and rug cutter helper in your recovery, keeping in mind your restrictions. (1) Get Active. Physical activity can help people lose weight, control high blood pressure and cholesterol, feel emotionally better, and sleep better. (2) Control Cholesterol. Avoid a diet high in saturated fat, trans fat, & cholesterol. Limit whole milk & cream, ice cream, butter, egg yolks, processed meats (like sausage and hot dogs), and fatty meats. Choose healthy foods that are low in saturated fat, trans fat and cholesterol which include: Fruits and vegetables, fiber rich grain products (like whole grain pasta and brown rice), lean meat such as chicken, fish, nuts, seeds, and legumes. (3) Eat Better. Eat small portions. Shop at the grocery with a list and do not stray from it. Tips for a healthy diet include: Limit sodium intake to less than 1500mg daily, avoid prepackaged, processed, and fast foods, choose a diet rich in fruits, vegetables, and whole grain, high fiber foods, and limit saturated & cholesterol in your diet. (4) Manage Blood Pressure. If you have high blood pressure, you should have a cuff at home so that you can check your blood pressure regularly. Be sure you have a good cuff. An arm one is generally better than a wrist one. Bring the cuff to a doctor's appointment to validate that the measurements that your cuff are taking are accurate. Take your blood pressure twice daily when you are sitting down and relaxing. Record the numbers in a log and bring this log with you to your doctors' appointments. (5) Lose Weight if your BMI is above 25. A healthy BMI is between 19-25. To calculate Your BMI, you may use a Standard BMI Calculator on the NIH BMI website: <www.nhlbi.nih.gov/guidelines/obesity/BMI/bmicalc.htm>. Weigh oneself daily. If you are overweight, set a goal to lose weight. A pound a week loss if needed is a good target. (6) Reduce Blood Sugar. Limit foods and liquids with "added sugars." (Added sugars include sucrose, fructose, glucose, maltose, dextrose, high fructose corn syrup, corn syrup, concentrated fruit juice and honey). (7) Stop Smoking. If you smoke, quitting smoking is one of the best things that you can do for your health. Smoking increases your risk of heart attack, stroke, and peripheral vascular disease, which is a build-up of plaque in your arteries. Please discard all the cigarettes and lighters in your house. Have a plan for what you will do when you have the urge to smoke. Direct and second- hand smoke shortens your life as well as the lives of your family, friends and others around you. For your health and the health of those around you, please consider quitting! Proper Bending Body Mechanics: Maintain a wide stance with one foot slightly in front of the other. Keep your back straight. Bend utilizing the strength in your hips and knees. Do not bend at the waist. Maintain the lifted object at your waist-level close to your body. Avoid lifting weight that causes immediately pain or pain anywhere in the body afterwards. Smoking/Nicotine If there was ever one thing that you could do to increase your overall health, decrease your risk of cardiovascular problems by about 39% the second you make the choice, it is to STOP SMOKING. Your body's most instant gratification is the second you stop smoking. We have all heard the studies, read the articles but it is true, smoking is extremely bad for your overall health, and moreover it is detrimental to your bone health. Nicotine, IN ANY FORM, kills bone cells, prevents your body from healing fractures, and significantly prolongs healing after surgery. In spine surgery specifically, it increases your risk of not healing your bones to create a fusion and increases your risk of having a revision surgery due to this up to 60%. I know it is hard. I know it feels impossible. But there are ways. Take control of your life. We are here to help you through it. And when you are ready, ask us and we can direct you to help if you desire. Use the START Plan to Quit Smoking (please visit the Helpguide.org website listed below for more information): S = Set a quit date. Choose a date within the next 2 weeks, so you have enough time to prepare without losing your motivation to quit. If you mainly smoke at work, quit on the weekend, so you have a few days to adjust to the change. T = Tell family, friends, and co-workers that you plan to quit. Let your friends and family in on your plan to quit smoking and tell them you need their support and encouragement to stop. Look for a quit rob who wants to stop smoking as well. You can help each other get through the rough times. A = Anticipate and plan for the challenges you'll face while quitting. Most people who begin smoking again do so within the first 3 months. You can help yourself make it through by preparing ahead for common challenges, such as nicotine withdrawal and cigarette cravings. R = Remove cigarettes and other tobacco products from your home, car, and work. Throw away all your cigarettes (no emergency pack!), lighters, ashtrays, and matches. Wash your clothes and freshen up anything that smells like smoke. Shampoo your car, clean your drapes and carpet, and steam your furniture. T = Talk to your doctor about getting help to quit. Your doctor can prescribe medication to help with withdrawal and suggest other alternatives. If you can't see a doctor, you can get many products over the counter at your local pharmacy or grocery store, including the nicotine patch, nicotine lozenges, and nicotine gum. Resources for Quitting Smoking: <https://www.[place].gov/do cuments/[facility]/Quit_Tobacco_Resources_for_patients_313480_7.pdf> Supplementation: Take recommended dosages of Vitamin D and Calcium to help fortify your bones and help them to heal. See your health maintenance packet for dosages and recommended levels. DVT/VTE prophylaxis: You will be given compression stockings from the hospital. Wear these daily for the first two weeks after surgery. You may take them off at night. You may be prescribed a medication to help thin your blood. Take this as directed. If you are not prescribed this medication, early and frequent ambulation has been shown to be the best prophylaxis to deep vein thrombosis and sequelae related to this event. Discharge Disposition: HOME WITH HOME HEALTH SERVICES
== END 2023-08-25 10:20 | disposition home or self-care (01) | DRG 471 ==
LOC: EC 14:28 → 4SSUR 18:50
PROVIDERS: ADMIT Internal Medicine Geriatric Medicine; ATTEND Internal Medicine Geriatric Medicine
PROC: 0RT30ZZ Resection of Cervical Vertebral Disc, Open Approach (ICD-10-PCS; principal; 2023-08-23 07:30)
PROC: 01N10ZZ Release Cervical Nerve, Open Approach (ICD-10-PCS; principal; 2023-08-23 07:30)
PROC: 00NW0ZZ Release Cervical Spinal Cord, Open Approach (ICD-10-PCS; principal; 2023-08-23 07:30)
PROC: 4A11X4G Monitoring of Peripheral Nervous Electrical Activity, Intraoperative, External Approach (ICD-10-PCS; principal; 2023-08-23 07:30)
PROC: 0RG20A0 Fusion of 2 or more Cervical Vertebral Joints with Interbody Fusion Device, Anterior Approach, Anterior Column, Open Approach (ICD-10-PCS; principal; 2023-08-23 07:30)
PROC: 0RG2070 Fusion of 2 or more Cervical Vertebral Joints with Autologous Tissue Substitute, Anterior Approach, Anterior Column, Open Approach (ICD-10-PCS; principal; 2023-08-23 07:30)
DX: M50.022 Cervical disc disorder at C5-C6 level with myelopathy (principal); S14.125A Central cord syndrome at C5 level of cervical spinal cord, initial encounter; D69.3 Immune thrombocytopenic purpura; N17.9 Acute kidney failure, unspecified; E11.22 Type 2 diabetes mellitus with diabetic chronic kidney disease; E11.40 Type 2 diabetes mellitus with diabetic neuropathy, unspecified; I12.9 Hypertensive chronic kidney disease with stage 1 through stage 4 chronic kidney disease, or unspecified chronic kidney disease; M48.02 Spinal stenosis, cervical region; M50.122 Cervical disc disorder at C5-C6 level with radiculopathy; N18.2 Chronic kidney disease, stage 2 (mild); Z79.4 Long term (current) use of insulin; M25.78 Osteophyte, vertebrae; G47.33 Obstructive sleep apnea (adult) (pediatric); E78.5 Hyperlipidemia, unspecified; N40.0 Benign prostatic hyperplasia without lower urinary tract symptoms; M54.50 Low back pain, unspecified; G89.29 Other chronic pain; R60.9 Edema, unspecified; Z79.84 Long term (current) use of oral hypoglycemic drugs; Z79.899 Other long term (current) drug therapy; V91.8 Other injury due to other accident to watercraft; Y92.89 Other specified places as the place of occurrence of the external cause
CPT/HCPCS: 36415; 72040; 72125; 80048; 80053; 85025; 85610; 85730; 93005; 96361; 96374; 96376; 99285

== ENCOUNTER → 2023-08-19 | Outpatient (CLI) | payer BC ==
--- NOTE | 2023-08-19 12:18 | MR ---
EXAMINATION TYPE: MR cervical spine wo con DATE OF EXAM: 08/19/2023 COMPARISON: None HISTORY: BUE numbness for 1 month, no CA, no sx TECHNIQUE: Multiplanar, multisequence images of the cervical spine were acquired without contrast. C2-C3: No evidence for degenerative disc disease. No disc bulge/herniation or protrusion. No Canal stenosis. Foramina are patent bilaterally. Mild degenerative disc disease. C3-C4: Mild degenerative disc disease with broad-based disc bulging effacing the thecal sac. Uncovert ebral joint hypertrophy greater on the left contributes to moderate left and mild right foraminal enc roachment. No spinal cord compression. C4-C5: Moderate degenerative disc disease with broad-based posterior disc osteophyte complex effacing the thecal sac. There is encroachment along the anterior margin of the spinal cord. Uncovertebral olinda int hypertrophy results in severe right and moderate to severe left foraminal encroachment. C5-C6: Broad-based central and right paracentral disc herniation with disc osteophyte complex resulti ng in anterior compression of the spinal cord and severe canal stenosis. Uncovertebral joint hypertro phy and degenerative disc disease contribute to severe bilateral foraminal approach. C6-C7: Right based disc herniation with disc osteophyte complex. Uncovertebral joint hypertrophy resu lts in severe right and moderate left foraminal encroachment. No canal stenosis. Severe degenerative disc disease with discogenic marrow changes. C7-T1: No evidence for degenerative disc disease. No disc bulge/herniation or protrusion. No Canal stenosis. Foramina are patent bilaterally. Cervical segments are intact. Straightening of the cervical spine with loss of normal lordosis. Multi level moderate degenerative disc disease most marked at C6-C7. Cervical spinal cord is of normal sign al. Craniovertebral junction relationships are within normal limits. Sagittal disc bulging or protr usions in the upper thoracic spine incidentally noted. IMPRESSION: 1. There is a large broad-based central disc herniation C5-C6 which results in anterior compression o f the spinal cord and severe bilateral foraminal encroachment and canal stenosis. 2. Multilevel additional levels of disc herniation or disc osteophyte complex resulting in multilevel significant foraminal encroachment. There is multilevel canal stenosis. 3. Sagittal disc bulging or protrusions in the upper thoracic spine incidentally noted. A Yellow level critical message alert has been initiated for Naga Fernandez MD via the [employer] Critical Results System on 08/19/2023 12:13 PM. This message alert has been sent to Naga Fernandez MD via the preferences provided by the clinician for the receipt of Radiology Critical Findings. Message ID [id number].
== END | disposition home or self-care (01) ==
LOC: RADMRIMAIN 11:00
PROVIDERS: ATTEND Internal Medicine Geriatric Medicine
DX: M99.71 Connective tissue and disc stenosis of intervertebral foramina of cervical region (principal); M50.222 Other cervical disc displacement at C5-C6 level; M48.02 Spinal stenosis, cervical region; R20.2 Paresthesia of skin
CPT/HCPCS: 72141